=== PATIENT | female | born 1985 | race American Indian/Alaskan Native ===

== ENCOUNTER 2017-02-02 16:11 | Emergency (ER) | payer OTHER ==
[2017-02-02 16:27] VITALS: BP 116/76; PULSE 67; RESP 18; TEMP 98; O2SAT 100; BMI 34.5
--- NOTE | 2017-02-02 16:42 | ED PDOC ---
Arrival/HPI - General Chief Complaint: Abnormal Skin Integrity Time Seen by Provider: 02/02/17 16:18 Historian: Patient - History of Present Illness Narrative History of Present Illness (Text): 02/02/17 16:39 This 31 yo female presents to this ED c/o rash around neck x 1 week. Patient stated rash worsen after using Vaseline ointment. Denies abscess, sore throat, sob, cough, dysphagia, recent travel, or sick contact. Time/Duration: 1 week Context: Home Past Medical History - Provider Review Nursing Documentation Reviewed: Yes - Past History Past History: No Previous - Infectious Disease Hx of Infectious Diseases: None - Tetanus Immunization Tetanus Immunization: Unknown - Past Medical History Past Medical History: No Previous - Psychiatric Hx Depression: No Hx Emotional Abuse: No Hx Physical Abuse: No Hx Substance Use: No - Past Surgical History Past Surgical History: No Previous - Surgical History Hx Section: Yes (1) - Anesthesia Hx Anesthesia: Yes Hx Anesthesia Reactions: No Hx Malignant Hyperthermia: No - Suicidal Assessment Feels Threatened In Home Enviroment: No Family/Social History - Physician Review Nursing Documentation Reviewed: Yes Family/Social History: No Known Family HX Smoking Status: Never Smoked Hx Alcohol Use: No Hx Substance Use: No Hx Substance Use Treatment: No Allergies/Home Meds Allergies/Adverse Reactions: Allergies clindamycin Adverse Reaction (Intermediate, Verified 10/17/16 15:08) RASH LARGE MACULAR RED RASHES ALDOSTERONE Allergy (Intermediate, Uncoded 10/17/16 15:08) RASH MACULAR RASHES LOTRISONE Allergy (Intermediate, Uncoded 10/17/16 15:08) REDNESS MACULAR RED RASHES CLINDAMYCIN Adverse Reaction (Intermediate, Uncoded 10/17/16 15:08) REDNESS RASHES Review of Systems - Review of Systems Constitutional: Normal. absent: Fatigue, Weight Change, Fevers, Night Sweats Eyes: Normal ENT: Normal Respiratory: Normal Cardiovascular: Normal Gastrointestinal: Normal Genitourinary Female: Normal Musculoskeletal: Normal Skin: Rash Neurological: Normal Endocrine: Normal Hemo/Lymphatic: Normal Psychiatric: Normal Physical Exam Vital Signs Temp Pulse Resp BP Pulse Ox 02/02/17 16:26 98.0 F 67 18 116/76 100 Temperature: Afebrile Blood Pressure: Normal Pulse: Regular Respiratory Rate: Normal Appearance: Positive for: Well-Appearing, Non-Toxic, Comfortable Pain Distress: None Mental Status: Positive for: Alert and Oriented X 3 - Systems Exam Head: Present: Atraumatic, Normocephalic Pupils: Present: PERRL Extroacular Muscles: Present: EOMI Conjunctiva: Present: Normal Mouth: Present: Moist Mucous Membranes Neck: Present: Normal Range of Motion Respiratory/Chest: Present: Clear to Auscultation, Good Air Exchange. No: Respiratory Distress, Accessory Muscle Use Cardiovascular: Present: Regular Rate and Rhythm, Normal S1, S2. No: Murmurs Abdomen: Present: Normal Bowel Sounds. No: Tenderness, Distention, Peritoneal Signs Back: Present: Normal Inspection Upper Extremity: Present: Normal Inspection. No: Cyanosis, Edema Lower Extremity: Present: Normal Inspection. No: Edema Neurological: Present: GCS=15, CN II-XII Intact, Speech Normal Skin: Present: Warm, Dry, Rashes (scattered rash around anterior part of neck, resembles acne), Normal Color Psychiatric: Present: Alert, Oriented x 3, Normal Insight, Normal Concentration Medical Decision Making ED Course and Treatment: 02/02/17 16:42 Re-evaluation. Patient feels better. Discussed results and plan with patient who expresses understanding. All questions answered and there is agreement with the plan to discharge home with instructions. Patient stable for discharge. Return if symptoms persist or worsen. Re-evaluation Time: 16:42 Reassessment Condition: Re-examined, Improved Disposition/Present on Arrival - Present on Arrival Any Indicators Present on Arrival: No History of DVT/PE: No History of Uncontrolled Diabetes: No Urinary Catheter: No History of Decub. Ulcer: No History Surgical Site Infection Following: None - Disposition Have Diagnosis and Disposition been Completed?: Yes Diagnosis: Rash Disposition: HOME/ ROUTINE Disposition Time: 16:43 Patient Plan: Discharge Condition: GOOD Discharge Instructions (ExitCare): Acute Rash (ED) Additional Instructions: Call private doctor and dynamic balancer set up worker for revaluation in 2-3 days. Take medication with food as instructed. return to emergency if symptoms worsen. Prescriptions: Doxycycline Hyclate 100 mg PO BID #14 capsule Referrals: Lucía Felix MD [Staff Provider] - Follow up with primary Forms: WORK NOTE
== END 2017-02-02 17:05 | disposition home or self-care (01) ==
LOC: ED 16:11
DX: R21 Rash and other nonspecific skin eruption (principal)

== ENCOUNTER 2017-02-18 22:09 | Emergency (ER) | payer OTHER ==
[2017-02-18 22:32] VITALS: BMI 34.0
--- NOTE | 2017-02-18 22:39 | ED PDOC ---
Arrival/HPI - General Time Seen by Provider: 02/18/17 22:19 Historian: Patient - History of Present Illness Narrative History of Present Illness (Text): 02/18/17 22:43 A 31 year old male, whose past medical history includes anemia, presents to the emergency department complaining of irregular menstruation. Patient reports worsening symptoms with heavy bleeding and pain for the past four days. Patient reports has been coming to the emergency department for the past 3 years for similar symptoms. Patient also notes has seen a PRINCIPAL TECHNOLOGIST in the past, who states she had an ovarian cyst. Reports period lasts for about 2-3 weeks and last month lasted all 30 days. Patient notes dizziness but denies chest pain, shortness of breath, palpitations or other complaints at this time. Time/Duration: < week Symptom Onset: Sudden Symptom Course: Unchanged Activities at Onset: Rest Context: Home Associated Symptoms (Text): dizziness Past Medical History - Provider Review Nursing Documentation Reviewed: Yes - Past History Past History: No Previous - Infectious Disease Hx of Infectious Diseases: None - Tetanus Immunization Tetanus Immunization: Unknown - Past Medical History Past Medical History: No Previous - Psychiatric Hx Depression: No Hx Emotional Abuse: No Hx Physical Abuse: No Hx Substance Use: No - Past Surgical History Past Surgical History: No Previous - Surgical History Hx Section: Yes (1) - Anesthesia Hx Anesthesia: Yes Hx Anesthesia Reactions: No Hx Malignant Hyperthermia: No - Suicidal Assessment Feels Threatened In Home Enviroment: No Family/Social History - Physician Review Nursing Documentation Reviewed: Yes Family/Social History: No Known Family HX Smoking Status: Never Smoked Hx Alcohol Use: No Hx Substance Use: No Hx Substance Use Treatment: No Allergies/Home Meds Allergies/Adverse Reactions: Allergies clindamycin Adverse Reaction (Intermediate, Verified 02/18/17 22:33) RASH LARGE MACULAR RED RASHES ALDOSTERONE Allergy (Intermediate, Uncoded 02/18/17 22:33) RASH MACULAR RASHES LOTRISONE Allergy (Intermediate, Uncoded 02/18/17 22:33) REDNESS MACULAR RED RASHES CLINDAMYCIN Adverse Reaction (Intermediate, Uncoded 02/18/17 22:33) REDNESS RASHES Review of Systems - Physician Review All systems were reviewed & negative as marked: Yes - Review of Systems Respiratory: absent: SOB Cardiovascular: absent: Chest Pain Genitourinary Female: Other (irregular menstruation; heavy bleeding and pain) Neurological: Dizziness Physical Exam - Physical Exam Narrative Physical Exam (Text): 02/18/17 22:41 Constitutional: No acute distress. Head: Normocephalic. Atraumatic. Eyes: PERRL. ENT: Moist mucous membranes. Neck: Supple. Cardiovascular: Regular rate. Chest: No tenderness. Respiratory: Clear to auscultation bilaterally. GI: Soft. Nontender. Nondistended. Back: No CVA tenderness. Musculoskeletal: No tenderness or swelling of extremities. Skin: No rash. Neurologic: Alert, no focal deficit. Vital Signs Reviewed: Yes Vital Signs Temp Pulse Resp BP Pulse Ox 02/19/17 01:16 64 16 141/60 98 02/18/17 22:50 97.7 F 62 16 128/76 98 02/18/17 22:34 97.7 F 62 16 128/76 98 Temperature: Afebrile Blood Pressure: Normal Pulse: Regular Respiratory Rate: Normal Appearance: Positive for: Well-Appearing, Non-Toxic, Comfortable Pain Distress: None Mental Status: Positive for: Alert and Oriented X 3 Medical Decision Making ED Course and Treatment: 02/18/17 22:40 Impression: A 31 year old female with irregular menstruation. Plan: -- Transvaginal US -- labs -- Urinalysis -- Reassess and disposition Prior Visits: Notes and results from previous visits were reviewed. Patient last reported to the emergency department on 02/02/17 for evaluation of neck rash. Patient was advised to take medication and call private doctor and travel med surg rn for reevaluation. Patient was discharged. Progress Notes: US Pelvis, Transvaginal FINDINGS: The uterus measures 10 x 5 x 6.5 cm and is normal. The endometrium is heterogeneous and measures 13- 60 mm. Small amount of endometrial fluid. The right ovary measures 7 x 2 x 5 cm and the left ovary measures 4 x 2 x 4 cm. There is a right ovarian simple cyst measuring 3.8 cm in diameter. The left ovary is normal. Color flow and doppler vascular waveforms were demonstrated to both ovaries. There is no significant free fluid. IMPRESSION: Right ovarian cyst. Slightly thickened heterogeneous endometrial canal. Recommend correlation with patient's menstrual cycle. Dictated and Authenticated by: Paula Espinal MD 02/19/2017 12:37 AM Eastern Time ([place] & [place]) 02/19/17 01:18 Patient with normal HR and blood pressure. Offered blood transfusion but patient declined and preferred to follow up with OBGYN. Return to ER for worsening bleeding, pain, dyspnea, chest pain, or any other problem. - Lab Interpretations Lab Results: 02/18/17 23:10 02/18/17 23:10 Lab Results 02/18/17 23:10: Blood Type A POSITIVE, Antibody Screen Negative, BBK History Checked Patient has bt 02/18/17 23:10: Sodium 138, Potassium 3.3 L, Chloride 101, Carbon Dioxide 29, Anion Gap 11, BUN 9, Creatinine 0.8, Est GFR ( Amer) > 60, Est GFR (Non- Af Amer) > 60, Random Glucose 91, Calcium 9.1, Total Bilirubin 0.2, AST 27, ALT 28, Alkaline Phosphatase 72, Total Protein 7.4, Albumin 4.0, Globulin 3.4, Albumin/Globulin Ratio 1.2, Lipase 68 02/18/17 23:10: WBC 6.1 D, RBC 3.68, Hgb 8.4 L, Hct 27.6 L, MCV 75.0 L, MCH 22.8 L, MCHC 30.4 L, RDW 19.9 H, Plt Count 251, MPV 10.9, Gran % 49.5 L, Lymph % (Auto) 41.4 H, [place] % (Auto) 6.5 H, Eos % (Auto) 2.3, Baso % (Auto) 0.3, Gran # 3.03, Lymph # 2.5, [place] # 0.4, Eos # 0.1, Baso # 0.02 02/18/17 22:40: Urine Color Straw, Urine Appearance Clear, Urine pH 7.0, Ur Specific [place] <= 1.005, Urine Protein Negative, Urine Glucose (UA) Negative, Urine Ketones Negative, Urine Blood Large H, Urine Nitrate Negative, Urine Bilirubin Negative, Urine Urobilinogen 0.2, Ur Leukocyte Esterase Trace H, Urine RBC 5 - 10, Urine WBC 1 - 3, Ur Epithelial Cells 3 - 4, Urine Bacteria Small, Urine HCG, Qual Negative I have reviewed the lab results: Yes - RAD Interpretation Radiology Orders: 02/18/17 22:34 TRANSVAGINAL [US] Stat - Scribe Statement The provider has reviewed the documentation as recorded by the Moses Brennan Provider Scribe Attestation: All medical record entries made by the Scribe were at my direction and personally dictated by me. I have reviewed the chart and agree that the record accurately reflects my personal performance of the history, physical exam, medical decision making, and the department course for this patient. I have also personally directed, reviewed, and agree with the discharge instructions and disposition. Disposition/Present on Arrival - Present on Arrival Any Indicators Present on Arrival: No History of DVT/PE: No History of Uncontrolled Diabetes: No Urinary Catheter: No History Surgical Site Infection Following: None - Disposition Have Diagnosis and Disposition been Completed?: Yes Diagnosis: Dysmenorrhea Disposition: HOME/ ROUTINE Disposition Time: 01:00 Patient Plan: Discharge Patient Problems: Current Active Problems Problem Status Onset Dysmenorrhea Acute Condition: STABLE Discharge Instructions (ExitCare): Dysfunctional Uterine Bleeding (ED) Referrals: Fadumo Mejia MD [Primary Care Provider] - Follow up with primary
[2017-02-18 22:51] VITALS: RESP 16; TEMP 97.7; O2SAT 98
[2017-02-18 22:57] LABS: URINE BILIRUBIN NEGATIVE (NEGATIVE); URINE BLOOD LARGE (NEGATIVE); URINE GLUCOSE (UA) NEGATIVE (NEGATIVE); URINE KETONE NEGATIVE (NEGATIVE); URINE LEUKOCYTE ESTERASE TRACE Leu/uL (NEGATIVE); URINE PROTEIN NEGATIVE mg/dL (<30 mg/dL); URINE UROBILINOGEN 0.2 E.U./dL (<1 E.U./dL)
[2017-02-18 23:05] LABS: URINE APPEARANCE CLEAR (CLEAR); URINE COLOR STRAW (YELLOW)
[2017-02-18 23:12] LABS: ADD MANUAL DIFF? NO
[2017-02-18 23:24] LABS: ALB/GLOB RATIO 1.2 (1.1-1.8); ALKALINE PHOSPHATASE 72 U/L (38-133); ALT/SGPT 28 U/L (7-56); AST/SGOT 27 U/L (15-39); BILIRUBIN,TOTAL 0.2 mg/dL (0.2-1.3); BLOOD UREA NITROGEN 9 mg/dL (7-21); CALCIUM 9.1 mg/dL (8.4-10.5); CARBON DIOXIDE 29 mmol/L (21-33); CHLORIDE 101 mmol/L (98-107); GFR AFRICAN-AMERICAN > 60; GLUCOSE,RANDOM 91 mg/dL (70-110); LIPASE 68 U/L (23-300); POTASSIUM 3.3 mmol/L (3.6-5.0); SODIUM 138 mmol/L (132-148); TOTAL PROTEIN 7.4 g/dL (5.8-8.3)
[2017-02-18 23:28] LABS: URINE BACTERIA SMALL (NEG)
[2017-02-18 23:34] LABS: HEMATOCRIT 27.6 % (36.0-48.0); MEAN CORPUSCULAR HEMOGLOBIN 22.8 pg (25.0-35.0); MEAN CORPUSCULAR HGB CONC 30.4 g/dl (31.0-37.0); RED CELL DISTRIBUTION WIDTH 19.9 % (11.5-14.5); WHITE BLOOD COUNT 6.1 10^3/ul (4.5-11.0)
[2017-02-18 23:35] LABS: BASO # 0.02 K/mm3 (0.0-2.0); BASO % 0.3 % (0.0-3.0); EOS # 0.1 (0.0-0.7); EOS % 2.3 % (1.5-5.0); GRAN # 3.03 (1.4-6.5); GRAN % 49.5 % (50.0-68.0); LYMPH # 2.5 (1.2-3.4); LYMPH % 41.4 % (22.0-35.0); MEAN PLATELET VOLUME 10.9 fl (7.0-11.0); MONO # 0.4 (0.1-0.6); MONO % 6.5 % (1.0-6.0); PLATELET COUNT 251 10^3/uL (120.0-450.0)
--- NOTE | 2017-02-19 00:38 | US ---
EXAM: US Pelvis, Transvaginal CLINICAL HISTORY: 31 years old, female; Pain; Pelvic pain; Patient HX: Irregular bleeding since 2 years; Additional info: Pelvic pain with vaginal bleeding TECHNIQUE: Real-time transvaginal pelvic ultrasound (complete) with image documentation. Transvaginal imaging was used for better evaluation of the endometrium and adnexa. EXAM DATE/TIME: 02/18/2017 10:34 PM COMPARISON: No relevant prior studies available. FINDINGS: The uterus measures 10 x 5 x 6.5 cm and is normal. The endometrium is heterogeneous and measures 13- 60 mm. Small amount of endometrial fluid. The right ovary measures 7 x 2 x 5 cm and the left ovary measures 4 x 2 x 4 cm. There is a right ovarian simple cyst measuring 3.8 cm in diameter. The left ovary is normal. Color flow and doppler vascular waveforms were demonstrated to both ovaries. There is no significant free fluid. IMPRESSION: Right ovarian cyst. Slightly thickened heterogeneous endometrial canal. Recommend correlation with patient's menstrual cycle.
[2017-02-19 01:17] VITALS: BP 141/60; PULSE 64
== END 2017-02-19 01:17 | disposition home or self-care (01) ==
LOC: ED 22:09
DX: N94.6 Dysmenorrhea, unspecified (principal); D64.9 Anemia, unspecified

== ENCOUNTER 2017-03-12 01:01 | Emergency (ER) | payer OTHER ==
[2017-03-12 01:01] VITALS: BMI 34.0
--- NOTE | 2017-03-12 02:13 | ED PDOC ---
Arrival/HPI - General Chief Complaint: Abdominal Pain Time Seen by Provider: 03/12/17 01:43 Historian: Patient - History of Present Illness Narrative History of Present Illness (Text): 03/12/17 02:05 Alexys Solis is a 31 year old female, whose past medical history includes anemia and ovarian cyst, who presents to the Emergency department complaining left-sided abdominal pain for the past 2 hours. Patient describes left-sided abdominal pain as constant/non-radiating and reports associated nausea. Patient denies any vomiting, diarrhea, hematochezia, hematuria, back pain, fever, chills , or any other complaints at this time. Time/Duration: 1-3 hours (2 hours) Symptom Onset: Gradual Symptom Course: Unchanged Activities at Onset: Rest, Light Context: Home Past Medical History - Provider Review Nursing Documentation Reviewed: Yes - Past History Past History: No Previous - Infectious Disease Hx of Infectious Diseases: None - Tetanus Immunization Tetanus Immunization: Unknown - Past Medical History Past Medical History: No Previous - Cardiac Hx Cardiac Disorders: No - Pulmonary Hx Respiratory Disorders: No - Neurological Hx Neurological Disorder: No - HEENT Hx HEENT Disorder: No - Renal Hx Renal Disorder: No - Endocrine/Metabolic Hx Endocrine Disorders: No - Hematological/Oncological Hx Blood Disorders: No - Integumentary Hx Dermatological Disorder: No - Musculoskeletal/Rheumatological Hx Musculoskeletal Disorders: No - Gastrointestinal Hx Gastrointestinal Disorders: No - Genitourinary/Gynecological Hx Genitourinary Disorders: No - Psychiatric Hx Depression: No Hx Emotional Abuse: No Hx Physical Abuse: No Hx Substance Use: No - Past Surgical History Past Surgical History: No Previous - Surgical History Hx Section: Yes (1) - Anesthesia Hx Anesthesia: Yes Hx Anesthesia Reactions: No Hx Malignant Hyperthermia: No - Suicidal Assessment Feels Threatened In Home Enviroment: No Family/Social History - Physician Review Nursing Documentation Reviewed: Yes Family/Social History: Unknown Family HX Smoking Status: Never Smoked Hx Alcohol Use: No Hx Substance Use: No Hx Substance Use Treatment: No Allergies/Home Meds Allergies/Adverse Reactions: Allergies aldosterone Allergy (Verified 03/12/17 01:17) RASH betamethasone [From Lotrisone] Allergy (Verified 03/12/17 01:17) RASH clotrimazole [From Lotrisone] Allergy (Verified 03/12/17 01:17) RASH clindamycin Adverse Reaction (Intermediate, Verified 03/12/17 01:13) RASH LARGE MACULAR RED RASHES Physical Exam - Physical Exam Narrative Physical Exam (Text): - Review of Systems Constitutional: Normal. absent: Fatigue, Weight Change, Fevers Eyes: Normal ENT: Normal Respiratory: Normal absent: SOB, Cough, Sputum Cardiovascular: Normal absent: Chest pain, Palpitations, Syncope Gastrointestinal: +left-sided abdominal pain, +nausea Normal absent: Diarrhea, Vomiting Genitourinary: Normal. absent: Dysuria, Frequency, Hematuria Musculoskeletal: Normal. absent: Arthralgias, Back Pain, Neck Pain Skin: Normal Neurological: Normal absent: Focal Weakness Endocrine: Normal Hemo/Lymphatic: Normal Psychiatric: Normal - Physical exam Patient appears age appropriate, speaking full sentences without difficulty - Systems Exam Head: Present: Atraumatic, Normocephalic Pupils: Present: PERRL Extraocular Muscles: Present: EOMI Conjunctiva: Present: Normal Mouth: Present: Moist Mucous Membranes Neck: Present: Normal Range of Motion. No: MIDLINE TENDERNESS, Paraspinal Tenderness Respiratory/Chest: Present: Clear to Auscultation, Good Air Exchange. No: Respiratory Distress, Accessory Muscle Use, Tachypneic Cardiovascular: Present: Regular Rate and Rhythm, Normal S1, S2, Peripheral Pulses Present. No: Murmurs Abdomen: Present: Normal Bowel Sounds, No: Tenderness, Peritoneal Signs, Rebound, Guarding, Distention Back: Present: Normal Inspection. No: Midline Tenderness, Paraspinal Tenderness , CVA Tenderness Upper Extremity: Present: Normal Inspection. No: Cyanosis, Edema Lower Extremity: Present: Normal Inspection. No: Edema Neurological: Present: GCS=15, Speech Normal, cranial nerves II through XII fully intact with no cerebellar abnormality, neuro-sensory fully intact. No focal neurological deficits. Skin: Present: Warm, Dry, Normal Color. No: Rashes Psychiatric: Present: Alert, Oriented x 3, Normal Insight, Normal Concentration Vital Signs Reviewed: Yes Vital Signs Temp Pulse Resp BP Pulse Ox 03/12/17 03:01 97.9 F 78 18 118/72 99 03/12/17 01:19 86 16 137/68 98 Temperature: Afebrile Blood Pressure: Normal Pulse: Regular Respiratory Rate: Normal Appearance: Positive for: Well-Appearing, Non-Toxic, Comfortable Pain Distress: None Mental Status: Positive for: Alert and Oriented X 3 Medical Decision Making ED Course and Treatment: 03/12/17 02:05 Impression: 31 year old female complaining of left-sided abdominal pain and nausea for 2 hours. Differential Diagnosis include but are not limited to: renal colic vs. diverticulitis Plan: -- CT Abdomen and Pelvis w/o contrast -- Labs -- Urinalysis -- IV fluids -- Zofran -- Toradol -- Reassess and disposition Prior Visits: Notes and results from previous visits were reviewed. On 02/18/2017, pt was seen in the Emergency department complaining of heavy vaginal bleeding with associated pain. Pt d/c home. Progress Notes: 03/12/17 03:18 Reviewed labs, pt's hemoglobin noted to be 8.3, there is no significant change from 02/18/2017 when pt's hemoglobin was 8.4. Potassium: 3.1, will order replacement. 03/12/17 04:09 Reviewed radiology, CT Abdomen and Pelvis: Dictated and Authenticated by: Ming Rojas MD Lower thorax: There is minimal bibasilar atelectasis. ABDOMEN: Liver: There are no focal liver lesions present. Gallbladder and bile ducts: The gallbladder is normal. No calcified stones. No ductal dilation. Pancreas: The pancreas is normal. No ductal dilation. Spleen: The spleen is normal. Adrenals: The adrenal glands are normal. Kidneys and ureters: Left kidney demonstrates [id number] hydronephrosis and mild hydroureter. This cysts at the level of the UVJ where there is an obstructing calculus measuring 4 mm. The right kidney is normal. Stomach and bowel: Unremarkable. No obstruction. No mucosal thickening. Appendix: No findings to suggest acute appendicitis. PELVIS: Bladder: Unremarkable. No stones. Reproductive: Unremarkable as visualized. ABDOMEN and PELVIS: Intraperitoneal space: Unremarkable. No free air. No significant fluid collection. Bones/joints: No acute fracture. No dislocation. Soft tissues: Unremarkable. Vasculature: Unremarkable. No abdominal aortic aneurysm. Lymph nodes: Unremarkable. No enlarged lymph nodes. Other findings: Clip through 4 IMPRESSION: 1. Left kidney demonstrates [id number] hydronephrosis and mild hydroureter. This cysts at the level of the UVJ where there is an obstructing calculus measuring 4 mm. 2. Additional incidental and/or chronic findings as described. 3. Clip through 4 Additional incidental and/or chronic findings as described. 03/12/17 04:32 on reevaluation pt states she feels much better pain has resolved states she has no n/v states she feels comfortable being dc'd home tolerating PO without difficulty Pt states she understands to return to the ER right away for new or worsening symptoms or for inability to f/u with PMD or specialist as instructed. Patient states that she fully agrees with and understands discharge instructions. States that she agrees with the plan and disposition. Verbalized and repeated discharge instructions and plan. I have given the patient opportunity to ask any additional questions. - Lab Interpretations Lab Results: 03/12/17 02:12 03/12/17 02:12 Lab Results 03/12/17 02:40: Urine Color Yellow, Urine Appearance Sl cloudy, Urine pH 7.5, Ur Specific [place] 1.020, Urine Protein Negative, Urine Glucose (UA) 100 H, Urine Ketones Negative, Urine Blood Small H, Urine Nitrate Negative, Urine Bilirubin Negative, Urine Urobilinogen 0.2, Ur Leukocyte Esterase Negative, Urine RBC 0 - 2, Urine WBC 0 - 2, Ur Epithelial Cells 1 - 3 03/12/17 02:12: Sodium 138, Potassium 3.1 L, Chloride 100, Carbon Dioxide 29, Anion Gap 12, BUN 8, Creatinine 1.0, Est GFR ( Amer) > 60, Est GFR (Non- Af Amer) > 60, Random Glucose 151 H, Calcium 8.9, Total Bilirubin 0.2, AST 37, ALT 21, Alkaline Phosphatase 88, Total Protein 7.8, Albumin 4.1, Globulin 3.7, Albumin/Globulin Ratio 1.1, Lipase 41 03/12/17 02:12: PT 10.8, INR 1.00, APTT 25.2 03/12/17 02:12: WBC 8.7 D, RBC 3.51, Hgb 8.3 L, Hct 27.4 L, MCV 78.1 L, MCH 23.6 L, MCHC 30.3 L, RDW 21.4 H, Plt Count 281, MPV 10.4, Gran % 79.9 H, Lymph % (Auto) 14.6 L, [place] % (Auto) 5.0, Eos % (Auto) 0.3 L, Baso % (Auto) 0.2, Gran # 6.96 H, Lymph # 1.3, [place] # 0.4, Eos # 0.0, Baso # 0.02 I have reviewed the lab results: Yes - RAD Interpretation Radiology Orders: 03/12/17 02:20 ABD & PELVIS W/O PO OR IV CONT [CT] Stat [employer]: Radiologist - Medication Orders Current Medication Orders: Discontinued Medications Sodium Chloride (Sodium Chloride 0.9%) 1,000 mls @ 1,000 mls/hr IV .Q1H STA Stop: 03/12/17 03:18 Last Admin: 03/12/17 02:37 Dose: 1,000 mls/hr Ketorolac Tromethamine (Toradol) 15 mg IVP STAT STA Stop: 03/12/17 02:20 Last Admin: 03/12/17 02:36 Dose: 15 mg Ondansetron HCl (Zofran Inj) 4 mg IVP STAT STA Stop: 03/12/17 02:20 Last Admin: 03/12/17 02:36 Dose: 4 mg Potassium Chloride (K-Dur 20 Meq Er Tab) 40 meq PO STAT STA Stop: 03/12/17 03:19 - Scribe Statement The provider has reviewed the documentation as recorded by the Scribherbie Montoya All medical record entries made by the Andreiibherbie were at my direction and personally dictated by me. I have reviewed the chart and agree that the record accurately reflects my personal performance of the history, physical exam, medical decision making, and the department course for this patient. I have also personally directed, reviewed, and agree with the discharge instructions and disposition. Disposition/Present on Arrival - Present on Arrival Any Indicators Present on Arrival: No History of DVT/PE: No History of Uncontrolled Diabetes: No Urinary Catheter: No History of Decub. Ulcer: No History Surgical Site Infection Following: None - Disposition Have Diagnosis and Disposition been Completed?: Yes Diagnosis: Ureteral colic Disposition: HOME/ ROUTINE Disposition Time: 04:39 Patient Plan: Discharge Condition: GOOD Discharge Instructions (ExitCare): Renal Colic (ED) Additional Instructions: PLEASE RETURN TO THE EMERGENCY DEPARTMENT FOR NEW OR WORSENING SYMPTOMS. RETURN RIGHT AWAY IF YOU CANNOT FOLLOW UP WITH YOUR PRIMARY CARE DOCTOR, CLINIC, OR SPECIALIST IN 1-2 DAYS. Prescriptions: Ibuprofen [Motrin] 600 mg PO Q8 PRN #12 tab PRN Reason: Pain, Moderate (4-7) oxyCODONE/Acetaminophen [Percocet 5/325 mg Tab] 1 ea PO Q6 #12 tab Tamsulosin [Flomax] 0.4 mg PO DAILY #4 cap Referrals: Fadumo Mejia MD [Primary Care Provider] - Follow up with primary Ham Brock MD [Staff Provider] - Follow up with primary Azam Reid MD [Staff Provider] - Follow up with primary Forms: WORK NOTE
[2017-03-12] MEDS ORDERED: Sodium Chloride 0.9% 1,000 ML IV STA (02:19)
[2017-03-12 02:24] LABS: ADD MANUAL DIFF? NO
[2017-03-12 02:44] LABS: ALB/GLOB RATIO 1.1 (1.1-1.8); ALKALINE PHOSPHATASE 88 U/L (38-133); ALT/SGPT 21 U/L (7-56); AST/SGOT 37 U/L (15-39); BILIRUBIN,TOTAL 0.2 mg/dL (0.2-1.3); BLOOD UREA NITROGEN 8 mg/dL (7-21); CALCIUM 8.9 mg/dL (8.4-10.5); CARBON DIOXIDE 29 mmol/L (21-33); CHLORIDE 100 mmol/L (98-107); GFR AFRICAN-AMERICAN > 60; GLUCOSE,RANDOM 151 mg/dL (70-110); LIPASE 41 U/L (23-300); POTASSIUM 3.1 mmol/L (3.6-5.0); SODIUM 138 mmol/L (132-148); TOTAL PROTEIN 7.8 g/dL (5.8-8.3)
[2017-03-12 02:47] LABS: PARTIAL THROMBOPLASTIN TIME 25.2 Seconds (23.7-30.8)
[2017-03-12 02:50] LABS: BASO # 0.02 K/mm3 (0.0-2.0); BASO % 0.2 % (0.0-3.0); EOS % 0.3 % (1.5-5.0); GRAN # 6.96 (1.4-6.5); GRAN % 79.9 % (50.0-68.0); HEMATOCRIT 27.4 % (36.0-48.0); LYMPH # 1.3 (1.2-3.4); LYMPH % 14.6 % (22.0-35.0); MEAN CELL VOLUME 78.1 fL (80.0-105.0); MEAN CORPUSCULAR HEMOGLOBIN 23.6 pg (25.0-35.0); MEAN CORPUSCULAR HGB CONC 30.3 g/dl (31.0-37.0); MEAN PLATELET VOLUME 10.4 fl (7.0-11.0); MONO # 0.4 (0.1-0.6); PLATELET COUNT 281 10^3/uL (120.0-450.0); RED CELL DISTRIBUTION WIDTH 21.4 % (11.5-14.5); WHITE BLOOD COUNT 8.7 10^3/ul (4.5-11.0)
[2017-03-12 03:17] LABS: PH,URINE 7.5 (4.7-8.0); URINE BILIRUBIN NEGATIVE (NEGATIVE); URINE BLOOD SMALL (NEGATIVE); URINE GLUCOSE (UA) 100 mg/dL (NEGATIVE); URINE KETONE NEGATIVE (NEGATIVE); URINE LEUKOCYTE ESTERASE NEGATIVE Leu/uL (NEGATIVE); URINE PROTEIN NEGATIVE mg/dL (<30 mg/dL); URINE UROBILINOGEN 0.2 E.U./dL (<1 E.U./dL)
[2017-03-12] MEDS ORDERED: Potassium Chloride 20 mEq ER Tab PO STA (03:18)
[2017-03-12 03:20] LABS: URINE APPEARANCE SL CLOUDY (CLEAR); URINE COLOR YELLOW (YELLOW)
[2017-03-12 03:29] LABS: URINE RBC 0 - 2 /hpf (0-2); URINE WBC 0 - 2 /hpf (0-6)
--- NOTE | 2017-03-12 04:04 | CT ---
EXAM: CT Abdomen and Pelvis Without Intravenous Contrast CLINICAL HISTORY: 31 years old, female; Pain; Abdominal pain; Acute; Additional info: Llq pain, renal colic TECHNIQUE: Axial computed tomography images of the abdomen and pelvis without intravenous contrast. This CT exam was performed using one or more of the following dose reduction techniques: automated exposure control, adjustment of the mA and/or kV according to patient size, and/or use of iterative reconstruction technique. Coronal and sagittal reformatted images were created and reviewed. COMPARISON: US - TRANSVAGINAL 02/18/2017 11:54:08 PM FINDINGS: Lower thorax: There is minimal bibasilar atelectasis. ABDOMEN: Liver: There are no focal liver lesions present. Gallbladder and bile ducts: The gallbladder is normal. No calcified stones. No ductal dilation. Pancreas: The pancreas is normal. No ductal dilation. Spleen: The spleen is normal. Adrenals: The adrenal glands are normal. Kidneys and ureters: Left kidney demonstrates [id number] hydronephrosis and mild hydroureter. This cysts at the level of the UVJ where there is an obstructing calculus measuring 4 mm. The right kidney is normal. Stomach and bowel: Unremarkable. No obstruction. No mucosal thickening. Appendix: No findings to suggest acute appendicitis. PELVIS: Bladder: Unremarkable. No stones. Reproductive: Unremarkable as visualized. ABDOMEN and PELVIS: Intraperitoneal space: Unremarkable. No free air. No significant fluid collection. Bones/joints: No acute fracture. No dislocation. Soft tissues: Unremarkable. Vasculature: Unremarkable. No abdominal aortic aneurysm. Lymph nodes: Unremarkable. No enlarged lymph nodes. Other findings: Clip through 4 IMPRESSION: 1. Left kidney demonstrates [id number] hydronephrosis and mild hydroureter. This cysts at the level of the UVJ where there is an obstructing calculus measuring 4 mm. 2. Additional incidental and/or chronic findings as described. 3. Clip through 4 Additional incidental and/or chronic findings as described.
[2017-03-12 06:04] VITALS: BP 118/72; PULSE 78; RESP 18; TEMP 97.9; O2SAT 99
== END 2017-03-12 04:42 | disposition home or self-care (01) ==
LOC: ED 01:01
DX: N23 Unspecified renal colic (principal)
CPT/HCPCS: 74176; 80053; 81001; 83690; 85025; 85610; 85730; 96361; 96374; 96375; 99283; J1885; J2405; J7040

== ENCOUNTER 2017-04-05 15:26 | Emergency (ER) | payer OTHER ==
[2017-04-05 15:26] VITALS: BMI 34.0
[2017-04-05 15:40] VITALS: BP 141/75; PULSE 71; RESP 18; TEMP 98.7; O2SAT 98
[2017-04-05] MEDS ORDERED: Sodium Chloride 0.9% 500 ML IV ONE (16:43)
--- NOTE | 2017-04-05 16:51 | ED PDOC ---
Arrival/HPI - General Chief Complaint: Abdominal Pain Time Seen by Provider: 04/05/17 16:23 - History of Present Illness Narrative History of Present Illness (Text): 04/05/17 16:43 Mrs. Solis is a 32 year old female with past medical history significant for kidney stones, ovarian cyst, and irregular menstrual cycle who presents to the emergency department with a 2 day history of left lower abdominal pain. The patient was [place] in [place] [facility] [place] for abdominal pain and a CT of the abdomen and pelvis showed a 4 mm stone. She is unsure if she has passed a stone since her most recent visit. She reports her abdominal pain is similar to her prior admission. She states the pain is 5/10, throbbing, sharp pain with radiation to her left lower back. She denies fever, nausea, vomiting, diarrhea, difficulty with urination, pain with urination, urinary retention and . She reports taking motrin for her pain with minimal decrease in pain. (NEPTALI RAMIREZ) Past Medical History - Provider Review Nursing Documentation Reviewed: Yes - Past History Past History: No Previous - Infectious Disease Hx of Infectious Diseases: None - Tetanus Immunization Tetanus Immunization: Unknown - Past Medical History Past Medical History: No Previous - Cardiac Hx Cardiac Disorders: No - Pulmonary Hx Respiratory Disorders: No - Neurological Hx Neurological Disorder: No - HEENT Hx HEENT Disorder: No - Renal Hx Renal Disorder: No Hx Kidney Stones: Yes - Endocrine/Metabolic Hx Endocrine Disorders: No - Hematological/Oncological Hx Blood Disorders: No - Integumentary Hx Dermatological Disorder: No - Musculoskeletal/Rheumatological Hx Musculoskeletal Disorders: No - Gastrointestinal Hx Gastrointestinal Disorders: No Other/Comment: kidney stone - Genitourinary/Gynecological Hx Genitourinary Disorders: No - Psychiatric Hx Depression: No Hx Emotional Abuse: No Hx Physical Abuse: No Hx Substance Use: No - Past Surgical History Past Surgical History: No Previous - Surgical History Hx Section: Yes (1) - Anesthesia Hx Anesthesia: Yes Hx Anesthesia Reactions: No Hx Malignant Hyperthermia: No - Suicidal Assessment Feels Threatened In Home Enviroment: No - Patient History Narrative Patient History: Nephrolithiasis Irregular menses (NEPTALI RAMIREZ) Family/Social History - Physician Review Nursing Documentation Reviewed: Yes Family/Social History: No Known Family HX Smoking Status: Never Smoked Hx Alcohol Use: No Hx Substance Use: No Hx Substance Use Treatment: No Allergies/Home Meds Allergies/Adverse Reactions: Allergies aldosterone Allergy (Verified 03/12/17 01:17) RASH betamethasone [From Lotrisone] Allergy (Verified 03/12/17 01:17) RASH clotrimazole [From Lotrisone] Allergy (Verified 03/12/17 01:17) RASH clindamycin Adverse Reaction (Intermediate, Verified 03/12/17 01:13) RASH LARGE MACULAR RED RASHES Review of Systems - Physician Review All systems were reviewed & negative as marked: Yes - Review of Systems Constitutional: absent: Fevers Gastrointestinal: Abdominal Pain, Constipation. absent: Nausea, Vomiting Genitourinary Female: absent: Dysuria, Hematuria, Vaginal Discharge Physical Exam Vital Signs Reviewed: Yes Temperature: Afebrile Blood Pressure: Normal Pulse: Regular Respiratory Rate: Normal Appearance: Positive for: Well-Appearing Pain Distress: None Mental Status: Positive for: Alert and Oriented X 3 - Systems Exam Head: Present: Atraumatic, Normocephalic Pupils: Present: PERRL Extroacular Muscles: Present: EOMI Conjunctiva: Present: Normal Mouth: Present: Moist Mucous Membranes Respiratory/Chest: Present: Clear to Auscultation, Good Air Exchange. No: Respiratory Distress, Accessory Muscle Use Cardiovascular: Present: Regular Rate and Rhythm, Normal S1, S2. No: Murmurs Abdomen: Present: Tenderness (left lower abdominal pain with moderate palpation) , Normal Bowel Sounds (hypoactive). No: Distention, Peritoneal Signs, Rebound, Guarding Back: No: CVA Tenderness, Midline Tenderness Upper Extremity: Present: Normal Inspection, Normal ROM, NORMAL PULSES. No: Edema Lower Extremity: Present: Normal Inspection, NORMAL PULSES, Normal ROM Neurological: Present: GCS=15, CN II-XII Intact, Speech Normal Skin: Present: Warm, Dry, Normal Color. No: Rashes Psychiatric: Present: Alert, Oriented x 3, Normal Insight, Normal Concentration Medical Decision Making - Lab Interpretations I have reviewed the lab results: Yes - RAD Interpretation Movie Shot Cameraman: Radiologist ED Course and Treatment: 04/05/17 16:55 Impression: Mrs. Solis is a 32 year old female with past medical history of nephrolithiasis, irregular menses, and ovarian cyst who presents with left lower abdominal pain for the past 2 days. Differential Diagnosis included but are not limited to: - Renal stone - Ectopic - Constipation Plan: - Labs: Urinalysis with culture, screen, CBC, CMP, Lipase - Imaging: CT abdomen and Pelvis w/o contrast - Reassess and disposition Progress Notes: 04/05/17 18:28 CT abdomen and pelvis: - Bilateral nephrolithiasis, the largest nonobstructing stone in the left lower pole measures 4 mm. No evidence of obstructive uropathy - Simple cysts in both ovaries, the larger in the right ovary measures 4.5 cm. - no aortic aneurysm (NEPTALI RAMIREZ) 04/05/17 18:42 Seen and examined with the resident. Our history and physical exam reveals a woman who is having left-sided flank and left lower quadrant pain similar to previous kidney stone from approximately 3 weeks ago. Patient has CT scan at that time which showed a 4 mm UVJ stone. Her CT scan today no longer shows that stone, but there is a 4 mm nephrolithiasis. She did get him improvement with Toradol. Her workup is otherwise negative. Her hypokalemia was treated. Known anemia. (Romaine Pace) - Lab Interpretations Lab Results: 04/05/17 17:20 04/05/17 17:20 Lab Results 04/05/17 17:20: Sodium 143, Potassium 3.1 L, Chloride 101, Carbon Dioxide 30, Anion Gap 15, BUN 7, Creatinine 0.8, Est GFR ( Amer) > 60, Est GFR (Non- Af Amer) > 60, Random Glucose 95, Calcium 9.2, Total Bilirubin 0.2, AST 27, ALT 22, Alkaline Phosphatase 83, Total Protein 8.2, Albumin 4.5, Globulin 3.7, Albumin/Globulin Ratio 1.2, Lipase 57 04/05/17 17:20: WBC 5.5 D, RBC 3.82, Hgb 9.3 L, Hct 30.0 L, MCV 78.5 L, MCH 24.3 L, MCHC 31.0, RDW 20.6 H, Plt Count 294, MPV 10.3, Gran % 52.1, Lymph % ( Auto) 38.3 H, [place] % (Auto) 7.3 H, Eos % (Auto) 1.8, Baso % (Auto) 0.5, Gran # 2.87, Lymph # 2.1, [place] # 0.4, Eos # 0.1, Baso # 0.03, Neutrophils % (Manual) Pending, Lymphocytes % (Manual) Pending, Monocytes % (Manual) Pending 04/05/17 16:50: Urine Color Red, Urine Appearance Cloudy, Urine pH 7.5, Ur Specific [place] 1.020, Urine Protein >=300 H, Urine Glucose (UA) 100 H, Urine Ketones 15 H, Urine Blood Large H, Urine Nitrate Positive H, Urine Bilirubin Moderate H, Urine Urobilinogen 4.0 H, Ur Leukocyte Esterase Moderate H, Urine RBC Tntc, Urine WBC 5 - 10, Urine Bacteria Mod - RAD Interpretation Narrative RAD Interpretations (Text): 04/05/17 18:25 - Bilateral nephrolithiasis, the largest nonobstructing stone in the left lower pole measures 4 mm. No evidence of obstructive uropathy - Simple cysts in both ovaries, the larger in the right ovary measures 4.5 cm. - no aortic aneurysm (NEPTALI RAMIREZ) Radiology Orders: 04/05/17 16:40 ABD & PELVIS W/O PO OR IV CONT [CT] Stat - Medication Orders Current Medication Orders: Discontinued Medications Sodium Chloride (Sodium Chloride 0.9%) 500 mls @ 500 mls/hr IV ONCE ONE Stop: 04/05/17 17:42 Last Admin: 04/05/17 17:39 Dose: 500 mls/hr Ketorolac Tromethamine (Toradol) 30 mg IVP ONCE ONE Stop: 04/05/17 16:44 Last Admin: 04/05/17 17:38 Dose: 30 mg Potassium Chloride (K-Dur 20 Meq Er Tab) 40 meq PO STAT STA Stop: 04/05/17 18:01 - PA / ORTHODONTIST / Resident Statement GILDARDO has reviewed & agrees with the documentation as recorded. / has examined the patient and agrees with the treatment plan. Disposition/Present on Arrival - Present on Arrival Any Indicators Present on Arrival: No History of DVT/PE: No History of Uncontrolled Diabetes: No Urinary Catheter: No History of Decub. Ulcer: No History Surgical Site Infection Following: None - Disposition Have Diagnosis and Disposition been Completed?: Yes Disposition Time: 18:35 - Disposition Diagnosis: Nephrolithiasis, Dysmenorrhea Patient Problems: Current Active Problems Problem Status Onset Dysmenorrhea Acute Nephrolithiasis Acute Condition: IMPROVED Discharge Instructions (ExitCare): Ovarian Cyst (ED), Kidney Stones (ED) Additional Instructions: Follow up with primary care physician Prescriptions: Naproxen [Naprosyn] 500 mg PO BID #30 tablet Referrals: Fadumo Mejia MD [Primary Care Provider] - Follow up with primary
[2017-04-05 17:04] LABS: PH,URINE 7.5 (4.7-8.0); URINE BILIRUBIN MODERATE (NEGATIVE); URINE BLOOD LARGE (NEGATIVE); URINE GLUCOSE (UA) 100 mg/dL (NEGATIVE); URINE LEUKOCYTE ESTERASE MODERATE Leu/uL (NEGATIVE); URINE NITRATE POSITIVE (NEGATIVE); URINE PROTEIN >=300 mg/dL (<30 mg/dL)
[2017-04-05 17:08] LABS: URINE APPEARANCE CLOUDY (CLEAR); URINE COLOR RED (YELLOW)
[2017-04-05 17:18] LABS: URINE RBC TNTC /hpf (0-2)
[2017-04-05 17:19] LABS: URINE BACTERIA MOD (NEG)
[2017-04-05 17:39] LABS: BASO # 0.03 K/mm3 (0.0-2.0); BASO % 0.5 % (0.0-3.0); EOS # 0.1 (0.0-0.7); EOS % 1.8 % (1.5-5.0); GRAN # 2.87 (1.4-6.5); GRAN % 52.1 % (50.0-68.0); HEMOGLOBIN 9.3 gm/dL (12.0-16.0); LYMPH # 2.1 (1.2-3.4); LYMPH % 38.3 % (22.0-35.0); MEAN CELL VOLUME 78.5 fL (80.0-105.0); MEAN CORPUSCULAR HEMOGLOBIN 24.3 pg (25.0-35.0); MEAN PLATELET VOLUME 10.3 fl (7.0-11.0); MONO # 0.4 (0.1-0.6); MONO % 7.3 % (1.0-6.0); PLATELET COUNT 294 10^3/uL (120.0-450.0); RBC 3.82 10^6/uL (3.5-6.1); RED CELL DISTRIBUTION WIDTH 20.6 % (11.5-14.5); WHITE BLOOD COUNT 5.5 10^3/ul (4.5-11.0)
[2017-04-05 17:51] LABS: ALB/GLOB RATIO 1.2 (1.1-1.8); ALBUMIN 4.5 g/dL (3.0-4.8); ALT/SGPT 22 U/L (7-56); AST/SGOT 27 U/L (15-39); BLOOD UREA NITROGEN 7 mg/dL (7-21); CALCIUM 9.2 mg/dL (8.4-10.5); GFR AFRICAN-AMERICAN > 60; GFR NON-AFRICAN AMERICAN > 60; LIPASE 57 U/L (23-300)
[2017-04-05] MEDS ORDERED: Potassium Chloride 20 mEq ER Tab PO STA (18:00)
--- NOTE | 2017-04-05 18:09 | CT ---
PROCEDURE: CT Abdomen and Pelvis without intravenous contrast HISTORY: abdominal pain COMPARISON: None. TECHNIQUE: CT scan of the abdomen and pelvis was performed without administration of intravenous contrast. Oral contrast was not administered. Coronal and sagittal reformatted images were obtained. Radiation dose: Total exam DLP = 1056.23 mGy-cm. This CT exam was performed using one or more of the following dose reduction techniques: Automated exposure control, adjustment of the mA and/or kV according to patient size, and/or use of iterative reconstruction technique. FINDINGS: LOWER THORAX: The lungs bases are clear. LIVER: The liver is normal in size. No gross lesion or ductal dilatation. GALLBLADDER AND BILE DUCTS: The gallbladder is contracted. PANCREAS: Normal in size. No gross lesion or ductal dilatation. SPLEEN: Normal in size. ADRENALS: Normal in size without discrete nodules. KIDNEYS AND URETERS: Both kidneys are normal in size. There are punctate nonobstructing stones in the interpolar region of the right kidney. There is a 4 mm nonobstructing stone in the lower pole of the left kidney and punctate nonobstructing stones in the left kidney. No hydronephrosis. The ureters are not dilated VASCULATURE: No aortic aneurysm. BOWEL: The small bowel loops are normal in caliber. There is moderate amount of stool in the ascending and transverse colon. No evidence of bowel obstruction. APPENDIX: Normal appendix. PERITONEUM: No free fluid. No free air. LYMPH NODES: No enlarged lymph nodes. BLADDER: The urinary bladder is partially decompressed. REPRODUCTIVE: The uterus is normal in size. There is high attenuation in the endometrial cavity and cervical canal which may represent blood products related to ongoing menstruation. Please correlate with LMP. There is a 4.5 cm simple cyst in the right ovary and a 3.6 cm simple cyst in the left ovary. BONES: No acute fracture. Within normal limits for the patient's age. OTHER FINDINGS: None. IMPRESSION: 1. Bilateral nephrolithiasis, the largest nonobstructing stone in the left lower pole measures 4 mm. No evidence of obstructive uropathy. 2. Simple cysts in both ovaries, the larger in the right ovary measures 4.5 cm. Follow-up pelvic ultrasound on a nonemergent basis in 3-6 month interval is recommended to assess stability/resolution.
[2017-04-05 18:42] LABS: ANISOCYTOSIS SLIGHT; HYPOCHROMIA 2+; LYMPHOCYTE 46 % (22.0-35.0); MICROCYTOSIS SLIGHT; MONOCYTE 3 % (1.0-6.0); NEUTROPHIL 51 % (50.0-70.0); PLATELET ESTIMATE NORMAL (NORMAL)
[2017-04-05 18:43] LABS: OVALOCYTES SLIGHT; TARGET CELLS SLIGHT
== END 2017-04-05 18:54 | disposition home or self-care (01) ==
LOC: ED 15:26
DX: N20.0 Calculus of kidney (principal); N94.6 Dysmenorrhea, unspecified
CPT/HCPCS: 74176; 80053; 81001; 83690; 85025; 96361; 96374; 99283; J1885; J7040

== ENCOUNTER 2017-04-08 18:36 | Observation (INO) | payer OTHER ==
[2017-04-08 18:59] VITALS: BMI 32.9
[2017-04-08] MEDS ORDERED: Sodium Chloride 0.9% 1,000 ML IV STA (19:15)
--- NOTE | 2017-04-08 19:15 | ED PDOC ---
Arrival/HPI - General Chief Complaint: Fever Time Seen by Provider: 04/08/17 19:11 Historian: Patient - History of Present Illness Narrative History of Present Illness (Text): 04/08/17 19:11 32 y/o female, pmh including dental vision, allergic to steroid/antifungal/ clindamycin, c/o fatigue x 2 days. Pt. stated that she has been feeling warm for the past 2 days, feeling fatigue, stated that she was seen here about 2 weeks ago for the renal stone which she was discharge home. Pt. stated that the flank pain resolved, no numbness or tingling, no vaginal bleeding or discharge, no palpitation, no neck stiffness, no rash, been feeling warm at home but no objective temperature, no other medical or psychological complaints. Past Medical History - Provider Review Nursing Documentation Reviewed: Yes - Past History Past History: No Previous - Infectious Disease Hx of Infectious Diseases: None - Tetanus Immunization Tetanus Immunization: Unknown - Past Medical History Past Medical History: No Previous - Cardiac Hx Cardiac Disorders: No - Pulmonary Hx Respiratory Disorders: No - Neurological Hx Neurological Disorder: No - HEENT Hx HEENT Disorder: No - Renal Hx Renal Disorder: No Hx Kidney Stones: Yes - Endocrine/Metabolic Hx Endocrine Disorders: No - Hematological/Oncological Hx Blood Disorders: No - Integumentary Hx Dermatological Disorder: No - Musculoskeletal/Rheumatological Hx Musculoskeletal Disorders: No - Gastrointestinal Hx Gastrointestinal Disorders: No Other/Comment: kidney stone - Genitourinary/Gynecological Hx Genitourinary Disorders: No - Psychiatric Hx Depression: No Hx Emotional Abuse: No Hx Physical Abuse: No Hx Substance Use: No - Past Surgical History Past Surgical History: No Previous - Surgical History Hx Section: Yes (1) - Anesthesia Hx Anesthesia: Yes Hx Anesthesia Reactions: No Hx Malignant Hyperthermia: No - Suicidal Assessment Feels Threatened In Home Enviroment: No Family/Social History - Physician Review Nursing Documentation Reviewed: Yes Family/Social History: Unknown Family HX Smoking Status: Never Smoked Hx Alcohol Use: No Hx Substance Use: No Hx Substance Use Treatment: No Allergies/Home Meds Allergies/Adverse Reactions: Allergies aldosterone Allergy (Verified 04/08/17 18:59) RASH betamethasone [From Lotrisone] Allergy (Verified 04/08/17 18:59) RASH clotrimazole [From Lotrisone] Allergy (Verified 04/08/17 18:59) RASH clindamycin Adverse Reaction (Intermediate, Verified 04/08/17 18:59) RASH LARGE MACULAR RED RASHES Review of Systems - Review of Systems Constitutional: Fatigue. absent: Fevers Eyes: absent: Vision Changes ENT: absent: Hearing Changes Respiratory: absent: SOB, Cough Cardiovascular: absent: Chest Pain Gastrointestinal: absent: Abdominal Pain, Nausea, Vomiting Musculoskeletal: absent: Arthralgias, Back Pain, Myalgias Skin: absent: Rash, Pruritis Neurological: absent: Headache, Dizziness, Focal Weakness Psychiatric: absent: Anxiety Physical Exam Vital Signs Reviewed: Yes Vital Signs Temp Pulse Resp BP Pulse Ox 04/08/17 23:53 98.3 F 60 18 122/72 100 04/08/17 21:30 77 18 109/72 99 04/08/17 19:02 98.6 F 83 17 109/72 100 Temperature: Afebrile Blood Pressure: Normal Pulse: Regular Respiratory Rate: Normal Appearance: Positive for: Well-Appearing, Non-Toxic, Comfortable Pain Distress: None Mental Status: Positive for: Alert and Oriented X 3 - Systems Exam Head: Present: Atraumatic, Normocephalic Pupils: Present: PERRL Extroacular Muscles: Present: EOMI Conjunctiva: Present: Normal Mouth: Present: Moist Mucous Membranes Pharnyx: No: ERYTHEMA, EXUDATE, TONSILS ENLARGED Neck: Present: Normal Range of Motion, Trachea Midline. No: Meningeal Signs, MIDLINE TENDERNESS, Lymphadenopathy Respiratory/Chest: Present: Clear to Auscultation, Good Air Exchange. No: Respiratory Distress, Accessory Muscle Use, Wheezes, Decreased Breath Sounds, Rales, Retracting, Rhonchi, Tachypneic, Tender to Palpation, Other Cardiovascular: Present: Regular Rate and Rhythm, Normal S1, S2. No: Murmurs Abdomen: Present: Tenderness (mild left cva tenderness. ), Normal Bowel Sounds. No: Distention, Peritoneal Signs Back: Present: Normal Inspection Upper Extremity: Present: Normal Inspection. No: Cyanosis, Edema Lower Extremity: Present: Normal Inspection. No: Edema Neurological: Present: GCS=15, CN II-XII Intact, Speech Normal Skin: Present: Warm, Dry, Normal Color. No: Rashes Psychiatric: Present: Alert, Oriented x 3, Normal Insight, Normal Concentration Medical Decision Making ED Course and Treatment: 04/08/17 19:22 -labs/ua -chest xray -IVF/tylenol -observe and reassess 04/08/17 20:19 -Labs are non-significant except potassium 3.2 which I corrected with KCl 20meq po. -UA show +UTI, IV rocephine ordered -Chest xrays no active disease -CT abdomen and pelvis added to make sure there is no obstructing stone as she stated that she had 4mm stone on the lt. ureter. 04/08/17 21:48 -CT abdomen/pelvis show: less than 1cm obstructing stone noted on the left distal ureter along with 4.4cmx3.6cm lesion 04/09/17 00:08 -sonogram show confirmed rt. ovarian lesion greater than 4cm, will need non- emergent obgyn consult. -Pt. will need inpatient admission for IV antibiotic for subjective infected obstructing stone, will need urologist consult. -IVF/flomax/strainer ordered. -I discussed with Dr. Bennett and he will put in the admission order. 04/09/17 00:15 -I discussed with DR. Wilson and the medical office clerk, both awared of the case and will come to the ER to admit the patient. - Lab Interpretations Lab Results: 04/08/17 19:45 04/08/17 19:45 Lab Results 04/08/17 19:45: Sodium 138, Potassium 3.2 L, Chloride 102, Carbon Dioxide 26, Anion Gap 13, BUN 7, Creatinine 0.8, Est GFR ( Amer) > 60, Est GFR (Non- Af Amer) > 60, Random Glucose 112 H, Calcium 8.7, Total Bilirubin 0.4, AST 23, ALT 18, Alkaline Phosphatase 80, Total Protein 7.6, Albumin 4.1, Globulin 3.5, Albumin/Globulin Ratio 1.2 04/08/17 19:45: WBC 7.6 D, RBC 3.67, Hgb 8.9 L, Hct 28.5 L, MCV 77.7 L, MCH 24.3 L, MCHC 31.2, RDW 21.0 H, Plt Count 255, MPV 9.5, Gran % 80.1 H, Lymph % ( Auto) 12.9 L, [place] % (Auto) 6.4 H, Eos % (Auto) 0.3 L, Baso % (Auto) 0.3, Gran # 6.09, Lymph # 1.0 L, [place] # 0.5, Eos # 0.0, Baso # 0.02 04/08/17 19:40: Urine Color Yellow, Urine Appearance Cloudy, Urine pH 8.5, Ur Specific [place] 1.015, Urine Protein 30 H, Urine Glucose (UA) Negative, Urine Ketones 15 H, Urine Blood Large H, Urine Nitrate Negative, Urine Bilirubin Negative, Urine Urobilinogen 0.2, Ur Leukocyte Esterase Moderate H, Urine RBC 10 - 15, Urine WBC 15 - 20, Ur Epithelial Cells 6 - 8, Urine Bacteria Mod I have reviewed the lab results: Yes Interpretation: Abnormal lab values (K+ 3.2, +UTI) - RAD Interpretation Radiology Orders: 04/08/17 19:15 CHEST PORTABLE [RAD] Stat 04/08/17 20:13 ABDOMEN & PELVIS [ABD & PELVIS W/O PO OR IV CONT] [CT] Stat 04/08/17 21:41 TRANSVAGINAL [US] Stat CT Abdomen and Pelvis: ABDOMEN: Liver: Unremarkable. Gallbladder and bile ducts: No calcified stones. No ductal dilation. Pancreas: Unremarkable. No ductal dilation. Spleen: No splenomegaly. Adrenals: No mass. Kidneys and ureters: Few punctate/small calculi within kidneys. Mild pelvocaliectasis of LEFT kidney. Mildly dilated LEFT ureter. 0.3 x 0.3 x 0.3 cm calculus within LEFT distal ureter. Stomach and bowel: No definite mural thickening. No obstruction. Appendix: Normal caliber. No inflammation. PELVIS: Bladder: Unremarkable. No stones. Reproductive: 4.4 x 3.6 x 3.6 cm hypodense lesion within RIGHT ovary. ABDOMEN and PELVIS: Intraperitoneal space: No significant fluid collection. No free air. Bones/joints: No acute fracture. Soft tissues: Tiny umbilical hernia containing fat. Vasculature: Unremarkable. No aneurysm. Lymph nodes: No pathologically enlarged lymph nodes. IMPRESSION: 1. LEFT distal ureteral calculus with mild hydroureteronephrosis. 2. Probable RIGHT ovarian cyst. Consider ultrasound. 3. Incidental/non-acute findings are described above. Thank you for allowing us to participate in the care of your patient. Dictated and Authenticated by: Siva Reed MD 04/08/2017 9:37 PM Eastern Time ([place] & [place]) FINDINGS: Uterus/cervix: Uterus measures 8.4 x 4.9 x 6.4 cm in size. No myometrial mass. Endometrium: 1.3 cm in thickness. Nabothian cysts. Right ovary: 5.0 x 5.8 x 2.5 cm in size. 3.8 x 4.4 x 3.5 cm anechoic lesion. Small follicles. Normal flow. Left ovary: 5.5 x 2.6 x 4.0 cm in size. No mass. Small follicles. Normal flow. Free fluid: Trace free fluid within pelvis. IMPRESSION: 1. RIGHT ovarian cyst. 2. Incidental/non-acute findings are described above Physician Advisor: Radiologist - Medication Orders Current Medication Orders: Sodium Chloride (Sodium Chloride 0.9%) 1,000 mls @ 500 mls/hr IV .Q2H CON Tamsulosin HCl (Flomax) 0.4 mg PO STAT STA Stop: 04/09/17 00:13 Discontinued Medications Acetaminophen (Tylenol 325mg Tab) 650 mg PO STAT STA Stop: 04/08/17 19:16 Last Admin: 04/08/17 20:14 Dose: 650 mg Sodium Chloride (Sodium Chloride 0.9%) 1,000 mls @ 999 mls/hr IV .Q1H1M STA Stop: 04/08/17 20:15 Last Admin: 04/08/17 20:14 Dose: 999 mls/hr Ceftriaxone Sodium (Rocephin 1 Gram Ivpb) 1 gm in 100 mls @ 200 mls/hr IVPB STAT STA PRN Reason: Protocol Stop: 04/08/17 20:42 Last Admin: 04/08/17 21:06 Dose: 200 mls/hr Potassium Chloride (K-Dur 20 Meq Er Tab) 20 meq PO STAT STA Stop: 04/08/17 20:19 Last Admin: 04/08/17 21:07 Dose: 20 meq - PA / EXPLOSIVE OPERATOR / Resident Statement MD/DO has reviewed & agrees with the documentation as recorded. Disposition/Present on Arrival - Present on Arrival Any Indicators Present on Arrival: No History of DVT/PE: No History of Uncontrolled Diabetes: No Urinary Catheter: No History of Decub. Ulcer: No History Surgical Site Infection Following: None - Disposition Have Diagnosis and Disposition been Completed?: Yes Diagnosis: Hypokalemia, UTI (urinary tract infection), Ureterolithiasis, Ovarian cyst Disposition: HOSPITALIZED Disposition Time: 20:20 Patient Plan: Admission, Observation Patient Problems: Current Active Problems Problem Status Onset Hypokalemia Acute UTI (urinary tract infection) Acute Ureterolithiasis Acute Ovarian cyst Acute Condition: STABLE Referrals: Fadumo Mjeia MD [Primary Care Provider] - Follow up with primary
[2017-04-08 19:59] LABS: BASO # 0.02 K/mm3 (0.0-2.0); BASO % 0.3 % (0.0-3.0); EOS % 0.3 % (1.5-5.0); GRAN # 6.09 (1.4-6.5); GRAN % 80.1 % (50.0-68.0); HEMOGLOBIN 8.9 gm/dL (12.0-16.0); LYMPH % 12.9 % (22.0-35.0); MEAN CELL VOLUME 77.7 fL (80.0-105.0); MEAN CORPUSCULAR HEMOGLOBIN 24.3 pg (25.0-35.0); MEAN CORPUSCULAR HGB CONC 31.2 g/dl (31.0-37.0); MEAN PLATELET VOLUME 9.5 fl (7.0-11.0); MONO # 0.5 (0.1-0.6); MONO % 6.4 % (1.0-6.0); PLATELET COUNT 255 10^3/uL (120.0-450.0); RBC 3.67 10^6/uL (3.5-6.1); WHITE BLOOD COUNT 7.6 10^3/ul (4.5-11.0)
[2017-04-08 20:00] LABS: PH,URINE 8.5 (4.7-8.0); URINE BILIRUBIN NEGATIVE (NEGATIVE); URINE BLOOD LARGE (NEGATIVE); URINE GLUCOSE (UA) NEGATIVE (NEGATIVE); URINE LEUKOCYTE ESTERASE MODERATE Leu/uL (NEGATIVE); URINE NITRATE NEGATIVE (NEGATIVE); URINE PROTEIN 30 mg/dL (<30 mg/dL); URINE UROBILINOGEN 0.2 E.U./dL (<1 E.U./dL)
[2017-04-08 20:03] LABS: URINE APPEARANCE CLOUDY (CLEAR); URINE COLOR YELLOW (YELLOW)
[2017-04-08 20:08] LABS: URINE WBC 15 - 20 /hpf (0-6)
[2017-04-08 20:11] LABS: URINE BACTERIA MOD (NEG)
[2017-04-08] MEDS ORDERED: cefTRIAXone 1 gm 1 GM/100 ML BAG IVPB STA (20:13)
[2017-04-08 20:16] LABS: ALB/GLOB RATIO 1.2 (1.1-1.8); ALBUMIN 4.1 g/dL (3.0-4.8); ALT/SGPT 18 U/L (7-56); AST/SGOT 23 U/L (15-39); BLOOD UREA NITROGEN 7 mg/dL (7-21); CALCIUM 8.7 mg/dL (8.4-10.5); GFR AFRICAN-AMERICAN > 60; GFR NON-AFRICAN AMERICAN > 60
[2017-04-08] MEDS ORDERED: Potassium Chloride 20 mEq ER Tab PO STA (20:18)
--- NOTE | 2017-04-08 21:37 | CT ---
EXAM: CT Abdomen and Pelvis Without Intravenous Contrast CLINICAL HISTORY: 32 years old, female; Pain; Other: Lt flank; Additional info: Obstructing lt. Renal stone? TECHNIQUE: Axial computed tomography images of the abdomen and pelvis without intravenous contrast. This CT exam was performed using one or more of the following dose reduction techniques: automated exposure control, adjustment of the mA and/or kV according to patient size, and/or use of iterative reconstruction technique. Coronal and sagittal reformatted images were created and reviewed. COMPARISON: CT - ABD PELVIS W/O PO OR IV CONT 04/05/2017 5:40:12 PM FINDINGS: Lower thorax: No acute findings. ABDOMEN: Liver: Unremarkable. Gallbladder and bile ducts: No calcified stones. No ductal dilation. Pancreas: Unremarkable. No ductal dilation. Spleen: No splenomegaly. Adrenals: No mass. Kidneys and ureters: Few punctate/small calculi within kidneys. Mild pelvocaliectasis of LEFT kidney. Mildly dilated LEFT ureter. 0.3 x 0.3 x 0.3 cm calculus within LEFT distal ureter. Stomach and bowel: No definite mural thickening. No obstruction. Appendix: Normal caliber. No inflammation. PELVIS: Bladder: Unremarkable. No stones. Reproductive: 4.4 x 3.6 x 3.6 cm hypodense lesion within RIGHT ovary. ABDOMEN and PELVIS: Intraperitoneal space: No significant fluid collection. No free air. Bones/joints: No acute fracture. Soft tissues: Tiny umbilical hernia containing fat. Vasculature: Unremarkable. No aneurysm. Lymph nodes: No pathologically enlarged lymph nodes. IMPRESSION: 1. LEFT distal ureteral calculus with mild hydroureteronephrosis. 2. Probable RIGHT ovarian cyst. Consider ultrasound. 3. Incidental/non-acute findings are described above.
[2017-04-08 23:32] VITALS: RESP 18
[2017-04-09] MEDS: Sodium Chloride 0.9% 1,000 ML IV SCH ×3 (00:39→05:15)
[2017-04-09 02:44] VITALS: BP 135/75; PULSE 66; TEMP 98.6; O2SAT 99
[2017-04-09] MEDS ORDERED: cefTRIAXone 1 gm 1 GM/100 ML BAG IVPB SCH ×2 (04:13→10:00)
--- NOTE | 2017-04-09 05:28 | CP.PCM.HP ---
<DERECK BARBA - Last Filed: 04/09/17 05:39> History of Present Illness - History of Present Illness History of Present Illness: Patient is a 32 year old female with history of nephrolithiasis and ovarian cysts who presented to [facility] [place] [facility] on 04/08/17 with complaints of feeling febrile. Patient states that she during her last hospital visit, she was diagnosed with two kidney stones, one of which was being passed at the time. Patient recalls feeling severe lower abdominal pain associated with vomiting during that time. Patient this time complains of feeling slight febrile for which she didn't check her temperature. She denies n/v/d, abdominal pain, back pain, groin pain, dysuria, shortness of breath, chest pain. Patient is currently undergoing her menstrual cycle which has been going on for the past 16 days. PMD: currently does not have PMH: nephrolithiasis, ovarian cysts PSH: 1 c section SH: denies tobacco, alcohol, illicit drug use FH: Mother- HTN Allergies: aldosterone, betamethasone, clotrimazole, clindamycin Present on Admission - Present on Admission Any Indicators Present on Admission: No Review of Systems - Constitutional Constitutional: absent: Chills, Headache - Cardiovascular Cardiovascular: absent: Chest Pain, Dyspnea - Respiratory Respiratory: absent: Dyspnea, Wheezing - Gastrointestinal Gastrointestinal: absent: Abdominal Pain, Diarrhea, Nausea, Vomiting - Reproductive: Female Reproductive:Female: Menses >/= 8 Days, Heavy Menses - Menstruation Menstruation: Menses >/= 8 Days, Menses Variable, Heavy Menses - Neurological Neurological: absent: Dizziness, Headaches Past Patient History - Infectious Disease Hx of Infectious Diseases: None - Tetanus Immunizations Tetanus Immunization: Unknown - Past Social History Smoking Status: Never Smoked - CARDIAC Hx Cardiac Disorders: No - PULMONARY Hx Respiratory Disorders: No - NEUROLOGICAL Hx Neurological Disorder: No - HEENT Hx HEENT Problems: No - RENAL Hx Chronic Kidney Disease: Yes Hx Kidney Stones: Yes - ENDOCRINE/METABOLIC Hx Endocrine Disorders: No - HEMATOLOGICAL/ONCOLOGICAL Hx Blood Disorders: Yes Hx Anemia: Yes - INTEGUMENTARY Hx Dermatological Problems: No - MUSCULOSKELETAL/RHEUMATOLOGICAL Hx Musculoskeletal Disorders: No Hx Falls: No - GASTROINTESTINAL Hx Gastrointestinal Disorders: No - GENITOURINARY/GYNECOLOGICAL Hx Genitourinary Disorders: Yes Hx Urinary Tract Infection: Yes - PSYCHIATRIC Hx Psychophysiologic Disorder: No - SURGICAL HISTORY Hx Surgeries: Yes () - ANESTHESIA Hx Anesthesia: Yes Hx Anesthesia Reactions: No Hx Malignant Hyperthermia: No Meds Allergies/Adverse Reactions: Allergies Allergy/AdvReac Type Severity Reaction Status Date / Time aldosterone Allergy RASH Verified 04/08/17 18:59 betamethasone Allergy RASH Verified 04/08/17 18:59 [From Lotrisone] clotrimazole [From Lotrisone] Allergy RASH Verified 04/08/17 18:59 clindamycin AdvReac Intermediate RASH Verified 04/08/17 18:59 Physical Exam - Constitutional Appears: Non-toxic, No Acute Distress - Head Exam Head Exam: ATRAUMATIC, NORMAL INSPECTION, NORMOCEPHALIC - Eye Exam Eye Exam: EOMI, Normal appearance - ENT Exam ENT Exam: Mucous Membranes Moist, Normal Exam - Respiratory Exam Respiratory Exam: Clear to Auscultation Bilateral, NORMAL BREATHING PATTERN - Cardiovascular Exam Cardiovascular Exam: REGULAR RHYTHM, RRR, +S1, +S2 - GI/Abdominal Exam GI & Abdominal Exam: Normal Bowel Sounds, Soft - Neurological Exam Neurological exam: Alert, CN II-XII Intact, Oriented x3 - Skin Skin Exam: Normal Color, Warm Results - Vital Signs Recent Vital Signs: Last Vital Signs Temp 98.6 F 04/09/17 02:00 Pulse 66 04/09/17 02:00 Resp 18 04/09/17 02:00 BP 135/75 04/09/17 02:00 Pulse Ox 99 04/09/17 02:00 - Labs Result Diagrams: 04/08/17 19:45 04/08/17 19:45 Assessment & Plan - Assessment and Plan (Free Text) Assessment: 32 year old female patient pmh nephrolithiasis and ovarian cysts presents with complaints of fever. Plan: 1. Nephrolithiasis - Urology consult; will follow up on recommendations - CT abdomen reveals left distal ureteral calculus with mild hydrouteronephrosis , probable right ovarian cyst. - Continue with fluids - Continue with Rocephin 1 gm IV - Strain urine for calculi DVT/GI prophylaxis- SCDs and Pepcid 20 mg BID <Hay Wilson - Last Filed: 04/09/17 20:35> Results - Vital Signs Recent Vital Signs: Last Vital Signs Temp 98.6 F 04/09/17 02:00 Pulse 66 04/09/17 02:00 Resp 18 04/09/17 02:00 BP 135/75 04/09/17 02:00 Pulse Ox 99 04/09/17 02:00 - Labs Result Diagrams: 04/09/17 06:30 04/08/17 19:45 Labs: Laboratory Results - last 24 hr 04/09/17 06:30 WBC 6.5 RBC 3.49 L Hgb 8.3 L Hct 27.4 L MCV 78.5 L MCH 23.8 L MCHC 30.3 L RDW 21.3 H Plt Count 246 MPV 10.3 Gran % 58.2 Lymph % (Auto) 28.3 [place] % (Auto) 12.1 H Eos % (Auto) 0.9 L Baso % (Auto) 0.5 Gran # 3.81 Lymph # 1.9 [place] # 0.8 H Eos # 0.1 Baso # 0.03 Attending/Attestation - Attestation I have personally seen and examined this patient.: Yes I have fully participated in the care of the patient.: Yes I have reviewed all pertinent clinical information: Yes Notes (Text): 04/09/17 20:34 Agree with history , physical examination ,assessment and plan.
[2017-04-09 07:22] LABS: BASO # 0.03 K/mm3 (0.0-2.0); BASO % 0.5 % (0.0-3.0); EOS # 0.1 (0.0-0.7); EOS % 0.9 % (1.5-5.0); GRAN # 3.81 (1.4-6.5); GRAN % 58.2 % (50.0-68.0); HEMOGLOBIN 8.3 gm/dL (12.0-16.0); LYMPH # 1.9 (1.2-3.4); LYMPH % 28.3 % (22.0-35.0); MEAN CELL VOLUME 78.5 fL (80.0-105.0); MEAN CORPUSCULAR HEMOGLOBIN 23.8 pg (25.0-35.0); MEAN CORPUSCULAR HGB CONC 30.3 g/dl (31.0-37.0); MEAN PLATELET VOLUME 10.3 fl (7.0-11.0); MONO # 0.8 (0.1-0.6); MONO % 12.1 % (1.0-6.0); PLATELET COUNT 246 10^3/uL (120.0-450.0); RBC 3.49 10^6/uL (3.5-6.1); RED CELL DISTRIBUTION WIDTH 21.3 % (11.5-14.5); WHITE BLOOD COUNT 6.5 10^3/ul (4.5-11.0)
[2017-04-09] MEDS ORDERED: Sodium Chloride 0.9% 1,000 ML IV SCH (07:36)
--- NOTE | 2017-04-09 09:59 | US ---
HISTORY: rt. ovarian cyst >4cm noted on the CT? COMPARISON: None available. TECHNIQUE: Transabdominal and transvaginal FINDINGS: UTERUS: Measures 8.4 x 4.9 x 6.4 cm. Normal in size and appearance. No fibroid or other mass lesion seen. ENDOMETRIUM: Measures 13 mm in diameter. Unremarkable. CERVIX: No cervical abnormality identified. RIGHT OVARY: Measures 5.0 x 5.8 x 2.5 cm. No solid mass. Normal flow. Simple cyst, 3.8 x 4.4 x 3.5 cm. LEFT OVARY: Measures 5.5 x 2.6 x 4.2 cm. No solid mass. Normal flow. FREE FLUID: No significant free fluid noted. OTHER FINDINGS: None. IMPRESSION: Simple right ovarian cyst, 4.4 cm greatest dimension. Remainder the examination is unremarkable. Preliminary interpretation of this examination was reported by [facility] at 11:56 p.m. on 04/08/2017. There is concurrence of this report with the preliminary interpretation.
--- NOTE | 2017-04-09 11:34 | RAD ---
HISTORY: medical clearance COMPARISON: No prior. FINDINGS: LUNGS: No active pulmonary disease. PLEURA: No significant pleural effusion identified, no pneumothorax apparent. CARDIOVASCULAR: Normal. OSSEOUS STRUCTURES: No significant abnormalities. VISUALIZED UPPER ABDOMEN: Normal. OTHER FINDINGS: None. IMPRESSION: No active disease.
--- NOTE | 2017-04-11 14:11 | CP.PCM.DIS ---
<MONAE HUA - Last Filed: 04/11/17 14:02> Provider - Provider Date of Admission: 04/09/17 00:35 Attending physician: Etta Dobbs MD Primary care physician: Fadumo Mejia MD Consults: Urology- Dr. Reid Time Spent in preparation of Discharge (in minutes): 40 Hospital Course - Lab Results Lab Results: Most Recent Lab Values WBC 6.5 10^3/ul (4.5-11.0) 04/09/17 06:30 RBC 3.49 10^6/uL (3.5-6.1) L 04/09/17 06:30 Hgb 8.3 gm/dL (12.0-16.0) L 04/09/17 06:30 Hct 27.4 % (36.0-48.0) L 04/09/17 06:30 MCV 78.5 fL (80.0-105.0) L 04/09/17 06:30 MCH 23.8 pg (25.0-35.0) L 04/09/17 06:30 MCHC 30.3 g/dl (31.0-37.0) L 04/09/17 06:30 RDW 21.3 % (11.5-14.5) H 04/09/17 06:30 Plt Count 246 10^3/uL (120.0-450.0) 04/09/17 06:30 MPV 10.3 fl (7.0-11.0) 04/09/17 06:30 Gran % 58.2 % (50.0-68.0) 04/09/17 06:30 Lymph % (Auto) 28.3 % (22.0-35.0) 04/09/17 06:30 Ransom % (Auto) 12.1 % (1.0-6.0) H 04/09/17 06:30 Eos % (Auto) 0.9 % (1.5-5.0) L 04/09/17 06:30 Baso % (Auto) 0.5 % (0.0-3.0) 04/09/17 06:30 Gran # 3.81 (1.4-6.5) 04/09/17 06:30 Lymph # 1.9 (1.2-3.4) 04/09/17 06:30 Ransom # 0.8 (0.1-0.6) H 04/09/17 06:30 Eos # 0.1 (0.0-0.7) 04/09/17 06:30 Baso # 0.03 K/mm3 (0.0-2.0) 04/09/17 06:30 Sodium 138 mmol/L (132-148) 04/08/17 19:45 Potassium 3.2 mmol/L (3.6-5.0) L 04/08/17 19:45 Chloride 102 mmol/L (98-107) 04/08/17 19:45 Carbon Dioxide 26 mmol/L (21-33) 04/08/17 19:45 Anion Gap 13 (10-20) 04/08/17 19:45 BUN 7 mg/dL (7-21) 04/08/17 19:45 Creatinine 0.8 mg/dL (0.5-1.4) 04/08/17 19:45 Est GFR ( Amer) > 60 04/08/17 19:45 Est GFR (Non-Af Amer) > 60 04/08/17 19:45 Random Glucose 112 mg/dL (70-110) H 04/08/17 19:45 Calcium 8.7 mg/dL (8.4-10.5) 04/08/17 19:45 Total Bilirubin 0.4 mg/dL (0.2-1.3) 04/08/17 19:45 AST 23 U/L (15-39) 04/08/17 19:45 ALT 18 U/L (7-56) 04/08/17 19:45 Alkaline Phosphatase 80 U/L (38-133) 04/08/17 19:45 Total Protein 7.6 g/dL (5.8-8.3) 04/08/17 19:45 Albumin 4.1 g/dL (3.0-4.8) 04/08/17 19:45 Globulin 3.5 gm/dL 04/08/17 19:45 Albumin/Globulin Ratio 1.2 (1.1-1.8) 04/08/17 19:45 Urine Color Yellow (YELLOW) 04/08/17 19:40 Urine Appearance Cloudy (CLEAR) 04/08/17 19:40 Urine pH 8.5 (4.7-8.0) 04/08/17 19:40 Ur Specific [place] 1.015 (1.005-1.035) 04/08/17 19:40 Urine Protein 30 mg/dL (<30 mg/dL) H 04/08/17 19:40 Urine Glucose (UA) Negative mg/dL (NEGATIVE) 04/08/17 19:40 Urine Ketones 15 mg/dL (NEGATIVE) H 04/08/17 19:40 Urine Blood Large (NEGATIVE) H 04/08/17 19:40 Urine Nitrate Negative (NEGATIVE) 04/08/17 19:40 Urine Bilirubin Negative (NEGATIVE) 04/08/17 19:40 Urine Urobilinogen 0.2 E.U./dL (<1 E.U./dL) 04/08/17 19:40 Ur Leukocyte Esterase Moderate Fernando/uL (NEGATIVE) H 04/08/17 19:40 Urine RBC 10 - 15 /hpf (0-2) 04/08/17 19:40 Urine WBC 15 - 20 /hpf (0-6) 04/08/17 19:40 Ur Epithelial Cells 6 - 8 /hpf (0-5) 04/08/17 19:40 Urine Bacteria Mod (NEG) 04/08/17 19:40 - Hospital Course Hospital Course: Mrs. Solis is a 32 year old female with history of nephrolithiasis and ovarian cysts who presented with complaints of feeling febrile. Patient was noted to be afebrile throughout the course of her hospital visit. A CT abdomen reveals left distal ureteral calculus with mild hydrouteronephrosis, probable right ovarian cyst. A transvaginal ultrasound showed a benign right ovarian cyst. Urology was consulted. A UA showed moderate leukocyte esterase. Patient was started on IV Rocephin and IVF. Given the size of the calculus, Dr. Reid gave instructions to follow up with him in his clinic within one week and discharged home tamsulosin and ciprofloxacin on 04/09. - Date & Time of H&P Date of H&P: 04/09/17 Time of H&P: 05:23 Discharge Exam - Head Exam Head Exam: NORMAL INSPECTION, NORMOCEPHALIC - Eye Exam Eye Exam: EOMI, Normal appearance - ENT Exam ENT Exam: Mucous Membranes Moist, Normal Exam - Neck Exam Neck exam: Full Rom - Respiratory Exam Respiratory Exam: NORMAL BREATHING PATTERN, UNREMARKABLE. absent: Rales, Rhonchi, Wheezes, Respiratory Distress - Cardiovascular Exam Cardiovascular Exam: REGULAR RHYTHM, RRR, +S1, +S2 - GI/Abdominal Exam GI & Abdominal Exam: Normal Bowel Sounds, Unremarkable. absent: Distended, Tenderness - Extremities Exam Extremities exam: normal capillary refill, pedal pulses present Additional comments: No calf tenderness or pedal edema bilaterally - Neurological Exam Neurological exam: Alert, Normal Gait, Oriented x3 - Psychiatric Exam Psychiatric exam: Normal Affect, Normal Mood - Skin Skin Exam: Dry, Intact, Normal Color, Warm Discharge Plan - Discharge Medications Prescriptions: Ciprofloxacin [Cipro] 500 mg PO BID #14 tab Tamsulosin [Flomax] 0.4 mg PO DAILY #10 cap - Follow Up Plan Condition: STABLE Disposition: HOME/ ROUTINE Instructions: Kidney Stones (DC), Urinary Tract Infection in Women (DC) Additional Instructions: 1. If your symptoms worsen or persist, please seek emergency medical care 2. Follow up with Dr. Reid in his office on Tuesday 3. Please follow up with your PMD for a hospital follow up visit. 4. Take all medications as prescribed Referrals: Fadumo Mejia MD [Primary Care Provider] - Azam Reid MD [Staff Provider] - <Etta Dobbs - Last Filed: 04/11/17 14:37> Provider - Provider Date of Admission: 04/09/17 00:35 Attending physician: Etta Dobbs MD Primary care physician: Fadumo Mejia MD Hospital Course - Lab Results Lab Results: Most Recent Lab Values WBC 6.5 10^3/ul (4.5-11.0) 04/09/17 06:30 RBC 3.49 10^6/uL (3.5-6.1) L 04/09/17 06:30 Hgb 8.3 gm/dL (12.0-16.0) L 04/09/17 06:30 Hct 27.4 % (36.0-48.0) L 04/09/17 06:30 MCV 78.5 fL (80.0-105.0) L 04/09/17 06:30 MCH 23.8 pg (25.0-35.0) L 04/09/17 06:30 MCHC 30.3 g/dl (31.0-37.0) L 04/09/17 06:30 RDW 21.3 % (11.5-14.5) H 04/09/17 06:30 Plt Count 246 10^3/uL (120.0-450.0) 04/09/17 06:30 MPV 10.3 fl (7.0-11.0) 04/09/17 06:30 Gran % 58.2 % (50.0-68.0) 04/09/17 06:30 Lymph % (Auto) 28.3 % (22.0-35.0) 04/09/17 06:30 Ransom % (Auto) 12.1 % (1.0-6.0) H 04/09/17 06:30 Eos % (Auto) 0.9 % (1.5-5.0) L 04/09/17 06:30 Baso % (Auto) 0.5 % (0.0-3.0) 04/09/17 06:30 Gran # 3.81 (1.4-6.5) 04/09/17 06:30 Lymph # 1.9 (1.2-3.4) 04/09/17 06:30 Ransom # 0.8 (0.1-0.6) H 04/09/17 06:30 Eos # 0.1 (0.0-0.7) 04/09/17 06:30 Baso # 0.03 K/mm3 (0.0-2.0) 04/09/17 06:30 Sodium 138 mmol/L (132-148) 04/08/17 19:45 Potassium 3.2 mmol/L (3.6-5.0) L 04/08/17 19:45 Chloride 102 mmol/L (98-107) 04/08/17 19:45 Carbon Dioxide 26 mmol/L (21-33) 04/08/17 19:45 Anion Gap 13 (10-20) 04/08/17 19:45 BUN 7 mg/dL (7-21) 04/08/17 19:45 Creatinine 0.8 mg/dL (0.5-1.4) 04/08/17 19:45 Est GFR ( Amer) > 60 04/08/17 19:45 Est GFR (Non-Af Amer) > 60 04/08/17 19:45 Random Glucose 112 mg/dL (70-110) H 04/08/17 19:45 Calcium 8.7 mg/dL (8.4-10.5) 04/08/17 19:45 Total Bilirubin 0.4 mg/dL (0.2-1.3) 04/08/17 19:45 AST 23 U/L (15-39) 04/08/17 19:45 ALT 18 U/L (7-56) 04/08/17 19:45 Alkaline Phosphatase 80 U/L (38-133) 04/08/17 19:45 Total Protein 7.6 g/dL (5.8-8.3) 04/08/17 19:45 Albumin 4.1 g/dL (3.0-4.8) 04/08/17 19:45 Globulin 3.5 gm/dL 04/08/17 19:45 Albumin/Globulin Ratio 1.2 (1.1-1.8) 04/08/17 19:45 Urine Color Yellow (YELLOW) 04/08/17 19:40 Urine Appearance Cloudy (CLEAR) 04/08/17 19:40 Urine pH 8.5 (4.7-8.0) 04/08/17 19:40 Ur Specific [place] 1.015 (1.005-1.035) 04/08/17 19:40 Urine Protein 30 mg/dL (<30 mg/dL) H 04/08/17 19:40 Urine Glucose (UA) Negative mg/dL (NEGATIVE) 04/08/17 19:40 Urine Ketones 15 mg/dL (NEGATIVE) H 04/08/17 19:40 Urine Blood Large (NEGATIVE) H 04/08/17 19:40 Urine Nitrate Negative (NEGATIVE) 04/08/17 19:40 Urine Bilirubin Negative (NEGATIVE) 04/08/17 19:40 Urine Urobilinogen 0.2 E.U./dL (<1 E.U./dL) 04/08/17 19:40 Ur Leukocyte Esterase Moderate Fernando/uL (NEGATIVE) H 04/08/17 19:40 Urine RBC 10 - 15 /hpf (0-2) 04/08/17 19:40 Urine WBC 15 - 20 /hpf (0-6) 04/08/17 19:40 Ur Epithelial Cells 6 - 8 /hpf (0-5) 04/08/17 19:40 Urine Bacteria Mod (NEG) 04/08/17 19:40 Attending/Attestation - Attestation I have personally seen and examined this patient.: Yes I have fully participated in the care of the patient.: Yes I have reviewed all pertinent clinical information, including history, physical exam and plan: Yes Notes (Text): 04/11/17 14:34 Attending note; Patient seen and examined with resident. Patient is a 32-year-old female admitted with abdominal discomfort. CT showed ureteral stone with mild hydronephrosis. Currently patient is pain-free. urology evaluation with Dr. Reid appreciated. Patient will be discharged home with Flomax and ciprofloxacin. Patient will follow-up with Dr. Reid in 3 days. Ovarian cyst; advised to follow-up with [facility] as outpatient. Diagnosis; Ureteral stone Hydronephrosis Ovarian cyst
== END 2017-04-09 11:00 | disposition home or self-care (01) ==
LOC: ED 18:36 → ERH 04-09 00:35 → INTOOBSV 04-09 00:35 → ERH 04-09 01:08 → 3RNO 04-09 01:53
PROVIDERS: ADMIT Hospitalist; ATTEND Internal Medicine
DX: N13.2 Hydronephrosis with renal and ureteral calculous obstruction (principal); N83.201 Unspecified ovarian cyst, right side; N39.0 Urinary tract infection, site not specified; E87.6 Hypokalemia
CPT/HCPCS: 36415; 71010; 74176; 76830; 80053; 81001; 85025; 96360; 96361; 99285; G0378; J0696; J7040

== ENCOUNTER 2018-04-19 19:53 | Emergency (ER) | payer OTHER ==
[2018-04-19 20:17] VITALS: PULSE 63; TEMP 97.8
[2018-04-19 20:18] VITALS: BMI 33.0
--- NOTE | 2018-04-19 20:38 | ED PDOC ---
Arrival/HPI - General Chief Complaint: Back Pain Time Seen by Provider: 04/19/18 20:38 - History of Present Illness Narrative History of Present Illness (Text): 04/19/18 20:55 Patient is a 33 year old female with a past medical history of nephrolithiasis presenting to hospital with left sided flank pain. The pain started yesterday while she was sitting down. The pain is described as intermittent, sharp and non -radiating in nature. She has had kidney stones in the past and the pain feels similar. She decided to attempt to wait for a stone to pass because of her history. She had an episode of pain this evening that was too painful which made her decide to come to the hospital. She has no other complaints at this time. Denies fevers, chills, nausea, vomiting, diarrhea, constipation, chest pain, shortness of breath, abdominal pain, numbness, tingling, dysuria, increased urinary frequency, hematuria, urinary/bowel incontinence. Time/Duration: Other (2 days) Symptom Onset: Sudden Symptom Course: Intermittent Quality: Stabbing Past Medical History - Provider Review Nursing Documentation Reviewed: Yes - Past History Past History: No Previous - Infectious Disease Hx of Infectious Diseases: None - Tetanus Immunization Tetanus Immunization: Unknown - Past Medical History Past Medical History: No Previous - Cardiac Hx Cardiac Disorders: No - Pulmonary Hx Respiratory Disorders: No - Neurological Hx Neurological Disorder: No - HEENT Hx HEENT Disorder: No - Renal Hx Renal Disorder: Yes Hx Kidney Stones: Yes - Endocrine/Metabolic Hx Endocrine Disorders: No - Hematological/Oncological Hx Blood Disorders: Yes Hx Anemia: Yes - Integumentary Hx Dermatological Disorder: No - Musculoskeletal/Rheumatological Hx Musculoskeletal Disorders: No Hx Falls: No - Gastrointestinal Hx Gastrointestinal Disorders: No Other/Comment: kidney stone - Genitourinary/Gynecological Hx Genitourinary Disorders: Yes Hx Urinary Tract Infection: Yes - Psychiatric Hx Psychophysiologic Disorder: No Hx Physical Abuse: No Hx Substance Use: No - Past Surgical History Past Surgical History: No Previous - Surgical History Hx Section: Yes (X1) - Anesthesia Hx Anesthesia: Yes Hx Anesthesia Reactions: No Hx Malignant Hyperthermia: No - Suicidal Assessment Feels Threatened In Home Enviroment: No Family/Social History - Physician Review Nursing Documentation Reviewed: Yes Family/Social History: Unknown Family HX Smoking Status: Never Smoked Hx Alcohol Use: No Hx Substance Use: No Hx Substance Use Treatment: No Allergies/Home Meds Allergies/Adverse Reactions: Allergies aldosterone Allergy (Verified 04/19/18 20:17) RASH betamethasone [From Lotrisone] Allergy (Verified 04/19/18 20:17) RASH clotrimazole [From Lotrisone] Allergy (Verified 04/19/18 20:17) RASH clindamycin Adverse Reaction (Intermediate, Verified 04/19/18 20:17) RASH LARGE MACULAR RED RASHES Review of Systems - Physician Review All systems were reviewed & negative as marked: Yes - Review of Systems Constitutional: Normal. absent: Fevers Eyes: Normal. absent: Vision Changes ENT: Normal. absent: Sore Throat Respiratory: Normal. absent: SOB Cardiovascular: Normal. absent: Chest Pain Gastrointestinal: Normal. absent: Abdominal Pain, Constipation, Diarrhea, Nausea, Vomiting Genitourinary Female: Normal. absent: Dysuria, Frequency, Hematuria, Urine Output Changes, Vaginal Bleeding Musculoskeletal: Back Pain (Left low back/flank pain) Skin: Normal. absent: Rash Neurological: Normal. absent: Headache, Dizziness Endocrine: Normal Psychiatric: Normal Physical Exam Vital Signs Reviewed: Yes Vital Signs Temp Pulse Resp BP Pulse Ox 04/19/18 20:16 97.8 F 63 18 152/92 H 100 Temperature: Afebrile Blood Pressure: Hypertensive Pulse: Regular Respiratory Rate: Normal Appearance: Positive for: Well-Appearing, Non-Toxic, Comfortable Pain Distress: None Mental Status: Positive for: Alert and Oriented X 3 - Systems Exam Head: Present: Atraumatic, Normocephalic Conjunctiva: Present: Normal Mouth: Present: Moist Mucous Membranes Nose (External): Present: Atraumatic Neck: Present: Normal Range of Motion. No: Lymphadenopathy Respiratory/Chest: Present: Clear to Auscultation, Good Air Exchange. No: Respiratory Distress, Accessory Muscle Use, Wheezes, Rales, Rhonchi Cardiovascular: Present: Regular Rate and Rhythm, Normal S1, S2. No: Murmurs Abdomen: Present: Normal Bowel Sounds. No: Tenderness, Distention, Peritoneal Signs Back: Present: CVA Tenderness (left side) Lower Extremity: Present: NORMAL PULSES. No: Edema, CALF TENDERNESS Neurological: Present: GCS=15, CN II-XII Intact, Speech Normal Skin: Present: Warm, Dry, Normal Color. No: Rashes Lymphatic: No: Cervical Adenopathy Psychiatric: Present: Alert, Oriented x 3, Normal Insight, Normal Concentration Medical Decision Making ED Course and Treatment: 04/19/18 21:18 Orders: * CBC * CMP * UA * Urine culture * POC Urine preg - neg * Abd/pelvis CT w/o IV or PO 04/20/18 00:[address] with patient which is normal except 4.5cm x 4.2cm hypdensity of the cyst/cystic lesion encompassing right ovary. Will order transvaginal US to r/o ovarian torsion. 04/20/18 01:56 US shows no ovarian torsion. Discussed results which show cyst on right side which patient states she is already aware of cyst on right ovary. Patient informed that she has UTI and will be discharged home with macrobid for 5 days. Patient is to be discharged home with instruction to follow up with her primary care physician. Patient states she understands and agrees. Re-evaluation Time: 01:54 Reassessment Condition: Re-examined, Improved - Lab Interpretations Lab Results: 04/19/18 21:00 04/19/18 21:00 Lab Results 04/19/18 21:10: Urine Color Light yellow, Urine Appearance Sl cloudy, Urine pH 6.5, Ur Specific [place] 1.025, Urine Protein Negative, Urine Glucose (UA) Negative, Urine Ketones Trace H, Urine Blood Small H, Urine Nitrate Positive H, Urine Bilirubin Negative, Urine Urobilinogen 1.0 H, Ur Leukocyte Esterase Negative, Urine RBC 2 - 5, Urine WBC 5 - 10, Ur Epithelial Cells 6 - 8, Urine Bacteria Large 04/19/18 21:00: Sodium 143, Potassium 3.4 L, Chloride 103, Carbon Dioxide 29, Anion Gap 14, BUN 8, Creatinine 0.7, Est GFR ( Amer) > 60, Est GFR (Non- Af Amer) > 60, Random Glucose 105, Calcium 8.8, Total Bilirubin 0.4, AST 24, ALT 27, Alkaline Phosphatase 82, Total Protein 7.9, Albumin 4.3, Globulin 3.5, Albumin/Globulin Ratio 1.2 04/19/18 21:00: WBC 7.2, RBC 4.12, Hgb 11.2 L, Hct 33.8 L, MCV 82.0, MCH 27.2, MCHC 33.1, RDW 15.1 H, Plt Count 242, MPV 10.2, Gran % 54.7, Lymph % (Auto) 35.8 H, [place] % (Auto) 6.6 H, Eos % (Auto) 2.6, Baso % (Auto) 0.3, Gran # 3.95, Lymph # (Auto) 2.6, [place] # (Auto) 0.5, Eos # (Auto) 0.2, Baso # (Auto) 0.02 I have reviewed the lab results: Yes - RAD Interpretation Radiology Orders: 04/19/18 20:48 ABDOMEN & PELVIS [ABD & PELVIS W/O PO OR IV CONT] [CT] Stat 04/19/18 23:59 TRANSVAGINAL [US] Routine Disposition/Present on Arrival - Present on Arrival Any Indicators Present on Arrival: No History of DVT/PE: No History of Uncontrolled Diabetes: No Urinary Catheter: No History of Decub. Ulcer: No History Surgical Site Infection Following: None - Disposition Have Diagnosis and Disposition been Completed?: Yes Diagnosis: UTI (urinary tract infection) Disposition: HOME/ ROUTINE Disposition Time: 02:02 Patient Plan: Discharge Patient Problems: Current Active Problems Problem Status Onset UTI (urinary tract infection) Acute Condition: FAIR Discharge Instructions (ExitCare): Urinary Tract Infections in Adults Additional Instructions: Patient is to follow up with her primary care physician within 2-3 days. If patient experiences any new or worsening symptoms, please go directly to the nearest emergency department. Prescriptions: Nitrofurantoin Macrocrystals [Macrobid] 100 mg PO Q12H #10 cap Forms: [employer] ([place]ian)
[2018-04-19 21:13] LABS: BASO # 0.02 K/mm3 (0.0-2.0); BASO % 0.3 % (0.0-3.0); EOS # 0.2 (0.0-0.7); EOS % 2.6 % (1.5-5.0); GRAN # 3.95 (1.4-6.5); GRAN % 54.7 % (50.0-68.0); HEMOGLOBIN 11.2 g/dL (12.0-16.0); LYMPH # 2.6 (1.2-3.4); LYMPH % 35.8 % (22.0-35.0); MEAN CORPUSCULAR HEMOGLOBIN 27.2 pg (25.0-35.0); MEAN CORPUSCULAR HGB CONC 33.1 g/dl (31.0-37.0); MEAN PLATELET VOLUME 10.2 fl (7.0-11.0); MONO # 0.5 (0.1-0.6); MONO % 6.6 % (1.0-6.0); RBC 4.12 10^6/uL (3.5-6.1); RED CELL DISTRIBUTION WIDTH 15.1 % (11.5-14.5); WHITE BLOOD COUNT 7.2 10^3/ul (4.5-11.0)
[2018-04-19 21:20] LABS: ALB/GLOB RATIO 1.2 (1.1-1.8); ALBUMIN 4.3 g/dL (3.0-4.8); ALT/SGPT 27 U/L (7-56); AST/SGOT 24 U/L (14-36); BLOOD UREA NITROGEN 8 mg/dL (7-21); CALCIUM 8.8 mg/dL (8.4-10.5); GFR AFRICAN-AMERICAN > 60; GFR NON-AFRICAN AMERICAN > 60
[2018-04-19 21:31] LABS: PH,URINE 6.5 (4.7-8.0); URINE BILIRUBIN NEGATIVE (NEGATIVE); URINE BLOOD SMALL (NEGATIVE); URINE GLUCOSE (UA) NEGATIVE (NEGATIVE); URINE LEUKOCYTE ESTERASE NEGATIVE Leu/uL (NEGATIVE); URINE PROTEIN NEGATIVE mg/dL (<30 mg/dL)
[2018-04-19 21:39] LABS: URINE APPEARANCE SL CLOUDY (CLEAR); URINE COLOR LIGHT YELLOW (YELLOW)
[2018-04-19 22:17] LABS: URINE BACTERIA LARGE (NEG)
[2018-04-20 02:15] VITALS: BP 125/82; RESP 20; O2SAT 98
--- NOTE | 2018-04-20 08:26 | CT ---
Date of service: 04/19/2018 PROCEDURE: CT Abdomen and Pelvis without intravenous contrast HISTORY: left flank pain, r/o kidney stone COMPARISON: None. TECHNIQUE: Technique. Contrast dose: Radiation dose: Total exam DLP = mGy-cm. This CT exam was performed using one or more of the following dose reduction techniques: Automated exposure control, adjustment of the mA and/or kV according to patient size, and/or use of iterative reconstruction technique. FINDINGS: LOWER THORAX: Unremarkable. LIVER: Unremarkable. No gross lesion or ductal dilatation. GALLBLADDER AND BILE DUCTS: Unremarkable. PANCREAS: Unremarkable. No gross lesion or ductal dilatation. SPLEEN: Unremarkable. ADRENALS: Unremarkable. No mass. KIDNEYS AND URETERS: Unremarkable. No hydronephrosis. No solid mass. VASCULATURE: Unremarkable. No aortic aneurysm. BOWEL: Unremarkable. No obstruction. No gross mural thickening. APPENDIX: Unremarkable. Normal appendix. PERITONEUM: Unremarkable. No free fluid. No free air. LYMPH NODES: Unremarkable. No enlarged lymph nodes. BLADDER: Unremarkable. REPRODUCTIVE: 4.5 cm right ovarian cystic lesion for which follow-up pelvic ultrasound is recommended.. BONES: No acute fracture. OTHER FINDINGS: None. IMPRESSION: 4.5 cm right ovarian cystic lesion for which follow-up pelvic ultrasound is recommended..
--- NOTE | 2018-04-20 10:10 | US ---
Date of service: 04/20/2018 PROCEDURE: HISTORY: pain, torsion COMPARISON: 04/08/17 TECHNIQUE: FINDINGS: UTERUS: Measures 8.2 x 4.8 x 6.4 cm. Normal in size and appearance. No fibroid or other mass lesion seen. ENDOMETRIUM: Measures 18 mm in diameter. Unremarkable. CERVIX: No cervical abnormality identified. RIGHT OVARY: Measures 5.3 x 4.1 x 6.0 Cm. No solid mass. Normal flow. Simple cyst measuring 4.1 cm. LEFT OVARY: Measures 3.3 X 2.6 x 2.0 Cm. No solid mass. Normal flow. FREE FLUID: No significant free fluid noted. OTHER FINDINGS: None. IMPRESSION: Simple right ovarian cyst measuring 4.1 cm.
== END 2018-04-20 02:15 | disposition home or self-care (01) ==
LOC: ED 19:53
DX: N39.0 Urinary tract infection, site not specified (principal); Z87.442 Personal history of urinary calculi